=== PATIENT | male | born 1945 | race Caucasian/White ===

== ENCOUNTER 2017-03-10 09:30 | Outpatient (RCR) | payer MEDICARE, OTHER, SELFPAY | END 2017-03-10 23:59 | LOC: PT 09:30 | PROVIDERS: Visit Provider Internal Medicine | DX: Z95.5 Presence of coronary angioplasty implant and graft (principal) | CPT/HCPCS: 93798 ==

== ENCOUNTER → 2017-05-02 11:48 | Outpatient (CLI) | payer MEDICARE, OTHER, SELFPAY ==
[2017-05-02 14:41] LABS: Prostate Specific Ag Screen 0.8 ng/mL (0.0-4.0)
== END ==
PROVIDERS: Visit Provider Urology
DX: Z12.5 Encounter for screening for malignant neoplasm of prostate (principal); N40.2 Nodular prostate without lower urinary tract symptoms
CPT/HCPCS: 36415; G0103

== ENCOUNTER → 2017-12-05 13:34 | Outpatient (CLI) | payer MEDICARE, OTHER, SELFPAY ==
[2017-12-05 14:58] LABS: Prostate Specific Ag Screen 0.7 ng/mL (0.0-4.0)
== END ==
PROVIDERS: PCP Nurse Practitioner Family; Visit Provider Urology
DX: N40.2 Nodular prostate without lower urinary tract symptoms (principal); Z12.5 Encounter for screening for malignant neoplasm of prostate
CPT/HCPCS: 36415; G0103

== ENCOUNTER → 2018-01-22 14:52 | Outpatient (CLI) | payer MEDICARE, OTHER, SELFPAY ==
--- NOTE | 2018-01-22 15:01 | XR_ITS ---
XR chest 2V HISTORY: HISTORY of CAD. Stents placed.. ITS.REASON: HTN ORDERING PHYSICIAN: Mena Perez PATIENT AGE: 72 years Technique: PA and lateral chest COMPARISON: 12/29/2016 FINDINGS:. Lungs clear with nothing definitely acute or no significant change. Stable small calcified granuloma towards the lateral right lung base. Small calcified hilar nodes reflecting old granulomatous disease The cardiomediastinal silhouette and pulmonary vascularity are within normal limits. The lungs are clear without infiltrates, suspicious nodules, or pleural effusions. No acute bony abnormalities. Marginal osteophytes lower T-spine account for the minimal density lower chest on lateral view. Stable since prior study. IMPRESSION: Stable chest nothing definitely acute.
== END ==
PROVIDERS: PCP Nurse Practitioner Family; Visit Provider Nurse Practitioner Family
DX: Z01.818 Encounter for other preprocedural examination (principal)
CPT/HCPCS: 71046

== ENCOUNTER → 2018-05-10 08:50 | Outpatient (CLI) | payer MEDICARE, OTHER, SELFPAY ==
[2018-05-10 13:58] LABS: Basophils % 0.6 % (0.1-2.0); Eosinophils # 0.4 K/mm3 (0.0-0.4); Eosinophils % 7.8 % (0.1-12.0); Hematocrit 43.1 % (42.0-52.0); Hemoglobin 15.1 g/dL (14.1-18.0); Lymphocytes # 2.5 K/mm3 (0.7-4.5); Lymphocytes % 48.4 % (10-50); Mean Corpuscular HGB Conc 34.9 g/dL (31.8-35.4); Mean Corpuscular Hemoglobin 30.5 pg (27.0-31.2); Mean Corpuscular Volume 87.2 fl (80-94); Monocytes # 0.4 K/mm3 (0.1-1.0); Monocytes % 8.6 % (1.7-9.3); Neutrophils # 1.8 K/mm3 (1.8-7.8); Neutrophils % 34.5 % (37.0-80.0); Platelet Count 99 K/mm3 (142-424); Red Blood Count 4.94 M/mm3 (4.60-6.20); Red Cell Distribution Width 13.9 % (11.5-17.5); White Blood Count 5.1 K/mm3 (4.8-10.8)
[2018-05-10 14:03] LABS: Alanine Aminotransferase 45 U/L (12-78); Albumin Level 3.7 gm/dL (3.4-5.0); Alkaline Phosphatase 73 U/L (46-116); Anion Gap 13.7 mEq/L (5-15); Aspartate Amino Transferase 29 U/L (15-37); Bilirubin,Total 0.8 mg/dL (0.2-1.0); Blood Urea Nitrogen 10 mg/dL (7-18); Calcium 9.1 mg/dL (8.5-10.1); Carbon Dioxide 29 mmol/L (21.0-32.0); Chloride 102 mmol/L (98-107); Creatinine,Serum 0.83 mg/dL (0.70-1.30); Estimated Glomerular Filt Rate 91 ml/min (>60); GFR (African American) 111 ML/MIN (>60); Globulin 3.6 gm/dl (1.3-3.2); Glucose 184 mg/dL (74-106); Potassium 3.7 mmoL/L (3.5-5.1); Sodium 141 mmol/L (136-145); Total Protein,Serum 7.3 gm/dL (6.4-8.2)
== END ==
PROVIDERS: PCP Nurse Practitioner Family; Visit Provider Orthopaedic Surgery
DX: Z01.818 Encounter for other preprocedural examination (principal)
CPT/HCPCS: 36415; 80053; 85025

== ENCOUNTER → 2018-08-24 13:30 | Outpatient (CLI) | payer MEDICARE, OTHER, SELFPAY ==
--- NOTE | 2018-08-24 13:33 | CA_ITS ---
PROCEDURE: 2-D M-mode and color Doppler study INDICATIONS FOR THE TEST: Chest pain COPD Heart Murmur Tobacco SmokingEX Palpitations Fatigue Syncope Edema+ Hypertension+Diabetes Mellitus Rheumatic Fever SOB+CHAHAL+Obesity Hyperlipidemia+ Family History HD Additional History CAD, 3 cardiac stents, GERD PATIENT INFORMATION HEIGHT: 68 WEIGHT: 205 GENDER: Male B/P: 136/79 2-D/M-MODE INTERPRETATION: 2-D MEASUREMENTS OBSERVED VALUES IN CMS Right Ventricular Dimension (RVDd) 2.6 Interventricular Septum (Thickness)(IVsd) 1.3 Left Ventricular Internal Dimensions(LVIDd) 4.0 Left Ventricular Posterior Wall (Thickness)(LVPWd) 1.0 Aortic Root 2.6 Aortic Cusp Separation 2.3 Left Atrial Dimensions (LAD) 3.6 2D 1. Left atrium is mildly enlarged, left ventricle is normal size, mild concentric left ventricular hypertrophy, visually estimated ejection fraction 55% with no regional wall motion abnormality. 2. The right atrium and right ventricle are mildly enlarged with normal contractility. 3. The aortic valve is minimally thickened and fibrosed. 4. The mitral and tricuspid valve leaflets are grossly normal. 5. The pulmonic valve is poorly visualized. 6. No significant pericardial effusion noted. DOPPLER INTERROGATION: Doppler interrogation of the aortic, mitral and tricuspid valvular presence of mild mitral and tricuspid regurgitation, tricuspid regurgitation jet velocity is inadequate for calculation of the right ventricular systolic pressure, grade 1 diastolic dysfunction seen with tissue Doppler evidence of raised left atrial pressure. CONCLUSION: 1. Mildly enlarged left atrium, normal left ventricular size, mild concentric left ventricular hypertrophy, visually estimated ejection fraction 55% with no regional wall motion abnormality, grade 1 diastolic dysfunction seen with tissue Doppler evidence of raised left atrial pressure. 2. Mild mitral and tricuspid regurgitation 3. No significant pericardial effusion noted.
== END ==
PROVIDERS: PCP Nurse Practitioner Family; Visit Provider Urology
DX: R06.00 Dyspnea, unspecified; I25.10 Atherosclerotic heart disease of native coronary artery without angina pectoris; E78.2 Mixed hyperlipidemia; R06.09 Other forms of dyspnea; Z95.5 Presence of coronary angioplasty implant and graft; I11.9 Hypertensive heart disease without heart failure
CPT/HCPCS: 93306

== ENCOUNTER → 2018-12-04 14:06 | Outpatient (CLI) | payer MEDICARE, OTHER, SELFPAY ==
[2018-12-04 17:36] LABS: Prostate Specific Ag, Diagnost 0.97 ng/mL (0.0-4.0)
== END ==
PROVIDERS: Visit Provider Urology
DX: N40.0 Benign prostatic hyperplasia without lower urinary tract symptoms (principal)
CPT/HCPCS: 36415; 84153

== ENCOUNTER 2020-05-25 12:07 | Day surgery (SDC) | payer MEDICARE, OTHER, SELFPAY ==
[2020-05-19 10:15] VITALS: BMI 29.6
[2020-05-25 12:52] VITALS: BP 159/97; PULSE 83; RESP 18; TEMP 37.1; O2SAT 96
[2020-05-25 13:07] LABS: Coronavirus 19 IgG Antibody Positive (Negative); Coronavirus 19 IgM Antibody Negative (Negative)
[2020-05-25 13:15] VITALS: O2SAT 97
[2020-05-25 13:19] LABS: POC Glucose,Bedside 124 (70-110)
[2020-05-25 13:36] VITALS: BP 163/85; PULSE 95; RESP 16; TEMP 36.4; O2SAT 95
--- NOTE | 2020-05-25 13:36 | P.PCN_ITS ---
[facility] Procedure Note Procedure Note:: Upper Endoscopy Procedure Report: Esophagogastroduodenoscopy with cold biopsies and TTS balloon dilation Endoscopost: Ned Singh II, MD Referring Physician: SATNAM Gallagher Date of Procedure: May 25, 2020 Equipment: Olympus GIF 190 standard upper endoscope Sedation: MAC sedation Indications: Mr. Pimentel is a 74-year-old gentleman who is here for diagnostic evaluation of his dysphagia. This primarily occurs with solid foods such as breads and meats. This has been going on for more than a year but has been worsening. He reports no heartburn or reflux. He does have some belching. This was better when he was on the Nexium and Zantac. He is not improving as much with omeprazole by mouth twice daily. This is his first upper endoscopy. He reports no bloating but does have some globus sensation. Procedure: Prior to the procedure, a history and physical exam was performed, and patient's medications and allergies were reviewed. The risks, benefits and alternatives of the sedation and procedure were discussed with the patient. All questions were answered and informed consent was obtained. The patient was brought to the procedure room. Patient identification and proposed procedure were verified by the physician and the nurse. The patient was placed in a left lateral decubitus position and the scope was passed under direct vision. Throughout the procedure, the patient's blood pressure, pulse, and oxygen saturations were monitored continuously. The upper GI endoscopy was accomplished without difficulty. The patient tolerated the procedure well. Findings: The scope was passed directly into the upper esophagus and advanced to the third portion of the duodenum. There was some duodenitis of the post bulbar duodenum. Within the duodenal bulb there were several shallow very superficial duodenal ulcers. The scope was withdrawn through a normal pylorus into the stomach. There was evidence of linear reactive gastropathy of the antrum and body of the stomach. The remainder of the fundus of the stomach were grossly normal. Upon retroflexion there was a very small 1 to 2 cm hiatal hernia. 2 biopsies were taken in the antrum and along the lesser curvature for histology to rule out gastritis and/or H pylori. The scope was then withdrawn into the esophagus. There was a distal Schatzki's ring. There was no evidence of reflux esophagitis or Cullen's. There was no evidence of eosinophilic esophagitis. There were strong tertiary contractions and evidence of moderate esophageal dysmotility. The entire esophagus was dilated to 60 Portuguese/20 mm with a TTS hydrostatic balloon. There was shattering of the Schatzki's ring. There was some resistance at the cricopharyngeus. The remainder of the esophageal mucosa was normal. Impression: 1. Cricopharyngeal spasm status post dilation to 20 mm 2. Schatzki's ring dilated to 20 mm 3. Nonerosive GERD with mild esophageal dysmotility and very small 1 to 2 cm hiatal hernia 4. Superficial duodenal ulcers (of duodenal bulb) with peptic duodenitis 5. Linear reactive gastropathy Plan: I will follow-up the biopsies. I would consider pantoprazole 40 mg p.o. daily. We will discuss additional dietary measures and treatment options. I will inquire about NSAID use and follow-up gastric biopsies to rule out H. pylori. The patient should have clinical improvement with dilation.
[2020-05-25 13:46] VITALS: BP 147/81; PULSE 85; RESP 16; O2SAT 95
[2020-05-25 13:56] VITALS: BP 143/89; PULSE 80; RESP 16; O2SAT 95
[2020-05-25 14:06] VITALS: BP 147/87; PULSE 76; RESP 16; TEMP 36.4; O2SAT 95
--- NOTE | 2020-05-25 15:11 | HMH.ANESCL ---
[facility] Anesthesia Checklist - Patient Identification Patient Identification: Arm Band - Structural Data Admitted From: Home Planned Operative Procedure/s: egd Consent for Planned Operative Procedure(s) Verified: Yes Verified Documents: Surgical Consent, History and Physical - NPO Status Verified Time NPO: 00:00 - Additional verifications Anesthesia Reactions: No Hx Blood Transfusions: No Blood Transfusion Reaction: No - Airway Assessment C-Spine Mobility Assessed: Yes (mp2) TMJ Mobility Assessed: Yes Dentition: Poor Dentition - Neurological Assessment Level of Consciousness: Awake, Alert - Anesthesia Plan Anesthesia Risk discussed: Yes Anesthesia Plan: Verified ASA Class: III Anesthesia Type: MAC [facility] History I have reviewed the patient's past medical history: Yes Medical History: Reports:: Coronary Artery Disease, Diabetes Mellitus Type 2, Gastroesophageal Reflux Disease(GERD), Hyperlipidemia, Hypertension Denies:: Cancer, Diabetes Mellitus Type 1, Internal Pacemaker, MRSA, Seizures *Have you ever received a pneumonia vaccine?: Yes *Have you received a flu vaccine this season?: Yes Other Medical History: Reports: Anemia. Denies: Blood Transfusion Reaction Anesthesia experience/problems:: nac Laterality Cases: Bilateral: Arthroscopy Hip, Tonsillectomy, Total Hip Replacement Other Surgeries: Yes: Colonoscopy, Coronary Stent, Other. No: Pacemaker Amputation: No Fractures: No - *Social History Last grade of school completed: High school graduate Smoking Status: Never smoker Alcohol Intake: never Alcohol Intake Frequency:: other Substance Use Type: denies use *Occupational Status:: retired Housing: house Household Members: spouse *Travel in the last 8 weeks: None Family Hx:: Coronary Artery Disease
== END 2020-05-25 14:08 | disposition home or self-care (01) ==
PROVIDERS: PCP Nurse Practitioner Family; Visit Provider Internal Medicine Gastroenterology
PROC: 0DJ08ZZ Inspection of Upper Intestinal Tract, Via Natural or Artificial Opening Endoscopic (ICD-10-PCS; CPT 43235; principal; 2020-05-25 13:30)
DX: R13.10 Dysphagia, unspecified (principal); J39.2 Other diseases of pharynx; K22.2 Esophageal obstruction; K44.9 Diaphragmatic hernia without obstruction or gangrene; K21.9 Gastro-esophageal reflux disease without esophagitis; K22.4 Dyskinesia of esophagus; K26.9 Duodenal ulcer, unspecified as acute or chronic, without hemorrhage or perforation; K29.80 Duodenitis without bleeding; K31.9 Disease of stomach and duodenum, unspecified; E78.5 Hyperlipidemia, unspecified; I10 Essential (primary) hypertension; E11.9 Type 2 diabetes mellitus without complications; I25.10 Atherosclerotic heart disease of native coronary artery without angina pectoris
CPT/HCPCS: 43239; 43249; 36415; 82962; 86328; 88305; C1726

== ENCOUNTER → 2021-08-25 07:06 | Outpatient (CLI) | payer MEDICARE, OTHER, SELFPAY ==
--- NOTE | 2021-08-25 07:07 | CA_ITS ---
APPROVED REPORT EXAM: Comprehensive 2D, Doppler, and color-flow Echocardiogram Launchman: ANDREW Pruett, RVS Ht: 5 ft 8 in Wt: 208lbs BSA: 2.08 BP: 134/75 mmHg Indications: CAD,DD, GERD, CP, HTN, HLD, EDEMA Echo Enhancing Agent Comments: TDS-Patient in constant motion 2D Dimensions Aortic Root 3.06 cm M: 3.1 - 3.7 LA Volume 40.70 mL Left Atrium 3.47 cm M: 3.0 - 4.0 LA Volume Index 19.747128 mL/m2 (M/F) 16-34 LVOT 1.98 cm (M/F) 1.5-2.5 M-Mode Dimensions RVDd 2.58 cm (0.9-2.6) LA Diam 4.08 cm (1.9-4.0) LVDd 4.15 cm (3.5-5.7) Ao Diam 3.43 cm (2.0-3.7) LVDs 2.50 cm (3.5-5.7) IVSd 1.25 cm (0.6-1.1) PWd 1.04 cm (0.6-1.1) EF (Teich) 70.80% EPSs 0.61 cm FS 39.80% EDV (Teich) 76.40 mL TAPSE 1.98 (<1.7) ESV (Teich) 22.30 mL LV Diastology E Decel Time 187.00 (160-240 msec) E/A Ratio 0.87 MED E' 6.80 (< 7 cm/sec) MED A' 11.00 cm/s E'/MED E' Ratio 13.38 (>14) LAT E' 5.40 (<10 cm/sec) LAT A' 8.80 cm/s E/LAT E' Ratio 16.85 (>14) Aortic Valve LVOT Max 90.00 (70-110 cm/s) LVOT VTI 18.86 cm AoV Peak David. 146.00 (50-130 cm/s) AO Peak GR. 8.50 mmHg AO Mean GR. 4.20 (<5 mmHg) AO VTI 29.13 (18-25 cm) CATHERINE (VTI) 1.99 (2.5-4.5 cm2) Mitral Valve MV A Velocity 105.00 (40-130 cm/s) E/A Ratio 0.87 MV Decel. Time 187.00 (160-240 ms) MV PHT 53.00 ms Pulmonary Valve PV Peak Velocity 95.00 (50-150 cm/s) MD End VMAX 210.00 cm/s Tricuspid Valve TR P. Velocity 254.00 cm/s RAP Estimate 10.00 mmHg RVSP 35.80 mmHg Left Ventricle Left atrium is mildly enlarged, left ventricle is normal size mild concentric left ventricular hypertrophy, estimated ejection fraction 55% with no regional wall motion abnormality, grade 1 diastolic dysfunction seen without tissue Doppler evidence of raise left atrial pressure. Right Ventricle Right atrium and right ventricle are normal size and contractility. Aortic Valve Aortic valve is minimally thickened and fibrosed there is no aortic stenosis or aortic insufficiency. Mitral Valve Mitral valve is grossly normal, there is trace mitral regurgitation. Tricuspid Valve Tricuspid grossly normal, there is trace tricuspid regurgitation, tricuspid regurgitation jet velocity is inadequate for calculation of the right ventricular systolic pressure. Pulmonic Valve Pulmonic valve is poorly visualized. Great Vessels Aortic root is normal size. Inferior vena cava is poorly visualized. Pericardium No significant pericardial effusion noted. Conclusion 1. Mildly enlarged left atrium, normal left ventricular size mild concentric left ventricular hypertrophy, estimated ejection fraction 55% with no regional wall motion abnormality, grade 1 diastolic dysfunction seen without tissue Doppler evidence of his left atrial pressure. 2. Trace mitral and tricuspid rotation. 3. No significant pericardial effusion. 4. Inferior vena cava is poorly visualized. Electronically signed by : Zana Nix MD 08/25/2021 19:15:23
--- NOTE | 2021-08-25 07:07 | CA_ITS ---
APPROVED REPORT Exam: Pharmacologic Technologist: Alma Cade, Ht: 5 ft 8 in Wt: 204 lbs BSA: 2.06 m2 HR: 70 bpm BP: 141/79 mmHg Medical History Medications: Lisinopril,,,,, Aspirin,,,,, Metformin,,,,, Pantoprazole,,,,, Atorvastatin,,,,, Beckie,,,,, HCTZ,,,,, Coreg,,,,, Zinc,,,,, Vitamin C, D3,,,,, Stress Test Details Test: LEXISCAN HR Resting HR: 74 bpm Max Heart Rate (APMHR): 146.331585 bpm Max HR Achieved: 104 bpm Target HR (85% APMHR): 124.207261 bpm % of APMHR: 71.23 Recovery HR: 92 bpm BP Resting BP: 141/79 mmHg Max BP: 141/79 mmHg Recovery BP: 138.0/74.0 mmHg ECG Resting ECG: NSR, normal Clinical Exercise duration: 04:00 min Highest Stage Achieved: Exercise capacity: 1.0 METs Stress ECG Conclusion Symptoms: SOA, mild stomach & head discomfort. No CP. Arrhythmias/Ectopy: None ST-T Changes: No significant changes. Conclusion: Unremarkable Lexiscan stress. Myoview images reported separately. Electronically signed by : Zana Nix MD 08/25/2021 18:54:14
--- NOTE | 2021-08-25 07:07 | NM_ITS ---
APPROVED REPORT Exam: Nuclear Stress Test Indication: Angina, HTN, DM, High cholesterol, Family history, CAD Patient Location: Outpatient Stress Tech: Alma Espinosa SC Tech:Patricia Hooker, ARRT, RT (R)(N) Ht: 5 ft 8 in Wt: 203 lbs HR: 74 bpm BP: 141/79 mmHg BSA: 2.06 m2 TID: 1.08 BMI: 30.8 History: Angina, HTN, DM, High cholesterol, Family history, CAD Procedure: Patient received a 0.4 mg of intravenous Lexiscan, resting heart rate 74 bpm, resting blood pressure 141/79 mmHg, with Lexiscan maximum heart rate achived was 104 bpm which is Less than 85 % of the maximum predicted heart rate and blood pressure was 141/79 mmHg. With Lexiscan, patient denied any complaint of chest pain. Electrocardiogram Resting electrocardiogram shows sinus rhythm, with Lexiscan less than 1.[address] segment depression noted from the baseline EKG. The EKG portion of the Lexiscan is nondiagnostic. Cardiac Stress and Resting SPECT Images: Cardiac Stress and Resting SPECT images were obtained using technetium 99m Myoview 31.8 mCi stress and 10.92 mCi at rest. Gated SPECT for analysis of segmental wall motion and calculation of the ejection fraction also done. Prone images were also obtained. Cardiac stress and rest SPECT images show uniform myocardial activity without segmental perfusion abnormality, computer derived ejection fraction 59% with no regional wall motion abnormality, right ventricle is normal size and contractility. Conclusion: 1. The EKG portion of the Lexiscan is nondiagnostic. 2. No scintigraphic evidence of reversible ischemia seen, compared to ejection fraction 59% with no regional wall motion abnormality, right ventricle is normal size and contractility. 3. Normal Lexiscan Myoview study. Electronically signed by : Zana Nix MD 08/25/2021 18:57:13
--- NOTE | 2021-08-25 08:44 | HMH.ITSHM ---
Current Home Medications as stated by this patient Aneesh Green or senior customer service representative. []ZINC PANTOPRAZOLE METFORMIN LISINOPRIL VITAMINS DUTASTERIDE CARVEDILOL ATORVASTATIN ASA
== END ==
PROVIDERS: PCP Nurse Practitioner Family; Visit Provider Nurse Practitioner Family
DX: E78.2 Mixed hyperlipidemia (principal); I10 Essential (primary) hypertension; I25.118 Atherosclerotic heart disease of native coronary artery with other forms of angina pectoris; Z95.5 Presence of coronary angioplasty implant and graft; R06.00 Dyspnea, unspecified
CPT/HCPCS: 78452; 93017; 93306; A9502; J2785

== ENCOUNTER → 2022-04-19 14:22 | Outpatient (CLI) | payer MEDICARE, OTHER, SELFPAY ==
--- NOTE | 2022-04-19 14:26 | MR_ITS ---
FINAL REPORT TECHNIQUE: Multiplanar and multisequence imaging of the lumbar spine was obtained without contrast. CLINICAL HISTORY: LUMBAR PAIN with right leg pain COMPARISON: 01/06/2021 FINDINGS: There is normal alignment of the lumbar vertebral bodies. Vertebral body height is preserved. The spinal cord ends at the level of L1. There is normal signal intensity within the substance of the distal spinal cord. There is a hemangioma in the L1 vertebral body, unchanged from prior. Bone marrow signal intensity is is normal. Multiple bilateral renal cysts are identified. No acute paraspinal abnormality is identified. L1-2: There is an annular disc bulge with degenerative endplate changes and facet osteoarthropathy. There is mild central stenosis. There is severe right and moderate left neural foraminal narrowing. L2-3: There is an annular disc bulge with degenerative endplate changes and facet osteoarthropathy. There is moderate to severe central stenosis with severe bilateral neural foraminal narrowing. L3-4: There is an annular disc bulge with degenerative endplate changes and facet osteoarthropathy. There is a superimposed right paracentral disc protrusion. There is severe central stenosis. There is severe, right greater than left neural foraminal narrowing. L4-5: There is an annular disc bulge with degenerative endplate changes and facet osteoarthropathy. There is moderate central stenosis and severe bilateral neural foraminal narrowing. L5-S1: There is an annular disc bulge with degenerative endplate changes and facet osteoarthropathy. There is mild central stenosis. There is severe right and moderate left neural foraminal narrowing. IMPRESSION: Advanced degenerative disc disease, stable to slightly worse. Reviewed, Interpreted and Dictated by Fabi Solis MD Transcribed by Vicky Liu Authenticated and [facility]
== END ==
PROVIDERS: PCP Nurse Practitioner Family; Visit Provider Orthopaedic Surgery
DX: M54.50 Low back pain, unspecified (principal)
CPT/HCPCS: 72148; 76376

== ENCOUNTER 2022-05-04 13:25 | Inpatient (IN) | payer MEDICARE, OTHER, SELFPAY ==
[2022-05-04] VITALS (12 sets, daily range): BP systolic 114–159; BP diastolic 67–97; PULSE 68–92; RESP 16–19; TEMP 36.6–36.8; O2SAT 92–98; BMI 30.4; BMI 31.2
--- NOTE | 2022-05-04 13:25 | ECG_ITS ---
APPROVED REPORT Exam: Resting ECG HR:81 bpm ECG Measurements Heart Rate 81 AXES ND 177 P 59 QRSd 88 QRS -11 QT 381 T 17 QTc 419 Conclusion SINUS RHYTHM NORMAL ECG UNCONFIRMED REPORT Electronically signed by : David Gomez MD 05/05/2022 17:07:29
--- NOTE | 2022-05-04 13:33 | HMH.EDGENADL ---
Discharge Plan Disposition Patient Disposition: Admitted as Observation Condition: Good Prescriptions Prescriptions: No Action metformin 500 mg tablet 500 mg PO DAILY pantoprazole 40 mg tablet,delayed release (DR/EC) 40 mg PO DAILY cholecalciferol (vitamin D3) 50 mcg (2,000 unit) capsule 50 mcg PO DAILY zinc 50 mg tablet 50 mg PO DAILY ascorbic acid (vitamin C) 500 mg capsule PO aspirin [Adult Low Dose Aspirin] 81 mg tablet,delayed release (DR/EC) 81 mg PO QDAY dutasteride-tamsulosin 0.5-0.4 mg capsule, ER multiphase 24 hr 1 cap PO QDAY ugmptoirwga-oeoqizzxh-vxe C-Mn 500-400 mg capsule 1 cap PO DAILY carvedilol phosphate 40 mg capsule, ER multiphase 24 hr See Rx Instructions .ROUTE .COMPLEX Qty: 90 3RF Dose Instruction: TAKE 1 CAPSULE DAILY FOR BLOOD PRESSURE Rx Instructions: TAKE 1 CAPSULE DAILY FOR BLOOD PRESSURE lisinopril-hydrochlorothiazide 10-12.5 mg tablet See Rx Instructions .ROUTE .COMPLEX Qty: 180 3RF Dose Instruction: TAKE 2 TABLETS DAILY Rx Instructions: TAKE 2 TABLETS DAILY atorvastatin 40 mg tablet See Rx Instructions .ROUTE .COMPLEX Qty: 90 3RF Dose Instruction: TAKE 1 TABLET DAILY FOR CHOLESTEROL Rx Instructions: TAKE 1 TABLET DAILY FOR CHOLESTEROL Referrals Follow up/Referrals: Yolanda Gonsalez [Primary Care Provider] - See instructions Clinical Impressions Clinical Impression: Chest pain Discharge ED Provider: Nick Samuel General Adult HPI General Chief complaint: Chest Pain Stated complaint: CP Time Seen by Provider: 05/04/22 14:16 History of Present Illness HPI narrative: Patient complains of chest discomfort. States that he awakened this morning about 5 AM and noticed some discomfort in his left anterior upper chest in the infraclavicular area. That his status is a mild nagging pain all day. Then when he was eating lunch she also got some substernal chest pain and pain in his jaws. States he is always short of breath, no change in his dyspnea. No nausea or diaphoresis. States that his chest discomfort is similar to what he has had from his heart in the past. He has a history of coronary disease with 3 stents done years ago by Dr. Collins. He has not had a heart cath since his last stent. He took low-dose aspirin this morning. He does not have nitroglycerin at home. He has not been ill otherwise recently. Related Data Home Medications Medication Instructions Recorded Confirmed aspirin 81 mg tablet,delayed 81 mg PO QDAY HEART. 03/27/17 08/16/21 release (Adult Low Dose Aspirin) dutasteride 0.5 mg-tamsulosin ER 1 cap PO QDAY PROSTATE 03/27/17 08/16/21 0.4 mg capsule ext.release 24hr mphas hvwnrxmskzc-pdaasjbeq-nmd C-Mn 500 1 cap PO DAILY Supplement 08/14/18 08/16/21 mg-400 mg capsule metformin 500 mg tablet 500 mg PO DAILY Diabetes 02/19/20 08/16/21 ascorbic acid (vitamin C) 500 mg mg PO 08/19/20 08/16/21 capsule cholecalciferol (vitamin D3) 50 50 mcg PO DAILY 08/19/20 08/16/21 mcg (2,000 unit) capsule pantoprazole 40 mg tablet,delayed 40 mg PO DAILY 08/19/20 08/16/21 release zinc 50 mg tablet 50 mg PO DAILY 08/19/20 08/16/21 Previous Rx's Medication Instructions Recorded carvedilol phosphate 40 mg See Rx Instructions .Route 10/07/21 capsule,ext.[id number] multiphase .COMPLEX #90 caps lisinopril 10 See Rx Instructions .Route 10/18/21 mg-hydrochlorothiazide 12.5 mg .COMPLEX #180 tabs tablet atorvastatin 40 mg tablet See Rx Instructions .Route 12/07/21 .COMPLEX #90 tabs Allergies Allergy/AdvReac Type Severity Reaction Status Date / Time No Known Allergies Allergy Verified 08/16/21 08:44 [facility] Disclaimer: The information contained in this section may have been updated after the patient was seen, as this information can be updated by other users. Medical History (Updated 05/04/22 @ 15:09 by Nick Jenkins
--- NOTE | 2022-05-04 13:40 | XR_ITS ---
FINAL REPORT CLINICAL HISTORY: chest pain COMPARISON: 12/29/2016 FINDINGS: PA and lateral views of the chest were obtained. The cardiac and mediastinal silhouettes are within normal limits. On the lateral view, there is a rounded opacity along the anterior margin of two lower thoracic vertebral bodies which is an unchanged from 2017. The lungs are otherwise clear. There is no pleural effusion or pneumothorax. No acute osseous abnormality is identified. IMPRESSION: No radiographic evidence of acute cardiac or pulmonary process, stable since 2017. Reviewed, Interpreted and Dictated by Fabi Solis MD Transcribed by Mary Saba Authenticated and [facility]
--- NOTE | 2022-05-04 13:50 | PC.NURSE ---
pt gone to xray
--- NOTE | 2022-05-04 14:00 | PC.NURSE ---
pt arrived back from xray
--- NOTE | 2022-05-04 14:00 | PC.NURSE ---
From Radiology via WC
[2022-05-04 14:15] LABS: Chloride 103 mmol/L (98-107); Potassium 3.3 mmoL/L (3.5-5.1); Sodium 139 mmol/L (136-145)
[2022-05-04 14:18] LABS: Anion Gap 10.3 mEq/L (5-15); Blood Urea Nitrogen 11 mg/dl (9-20); Calcium 8.8 mg/dl (8.4-10.2); Carbon Dioxide 29 mmol/L (22.0-30.0); Creatinine Clearance Estimated 82 mL/min (50-200); Estimated Glomerular Filt Rate 94 ml/min (>60); GFR (African American) 114 ML/MIN (>60); Glucose 149 mg/dl (74-100)
[2022-05-04 14:20] LABS: Basophils # 0.1 K/mm3 (0-0.2); Basophils % 1.1 % (0.1-2.0); Eosinophils # 0.4 K/mm3 (0.0-0.4); Eosinophils % 4.7 % (0.1-12.0); Hematocrit 42.3 % (42.0-52.0); Hemoglobin 14.3 g/dL (14.1-18.0); Lymphocytes # 2.9 K/mm3 (0.7-4.5); Lymphocytes % 31.4 % (10-50); Mean Corpuscular HGB Conc 33.7 g/dL (31.8-35.4); Mean Corpuscular Hemoglobin 29.5 pg (27.0-31.2); Mean Corpuscular Volume 87.6 fl (80-94); Mean Platelet Volume 9.4 fl (7.4-10.4); Monocytes # 0.6 K/mm3 (0.1-1.0); Monocytes % 6.3 % (1.7-9.3); Neutrophils # 5.2 K/mm3 (1.8-7.8); Neutrophils % 56.4 % (37.0-80.0); Platelet Count 220 K/mm3 (142-424); Red Blood Count 4.83 M/mm3 (4.60-6.20); White Blood Count 9.2 K/mm3 (4.8-10.8)
--- NOTE | 2022-05-04 14:22 | PC.NURSE ---
rivas garcía speaking to everette pinon about pt
--- NOTE | 2022-05-04 14:32 | PC.NURSE ---
Rounded on patient; pt resting on ED stretcher with family at BS. no other needs at this time, call light within reach
[2022-05-04 14:41] LABS: Troponin I < 0.01 ng/ml (0.00-0.034)
--- NOTE | 2022-05-04 15:00 | PC.NURSE ---
CARITO Mohr with Cardiology at BS
--- NOTE | 2022-05-04 15:13 | PC.NURSE ---
Spoke with Mindy in care management regarding patient admission
--- NOTE | 2022-05-04 15:17 | PC.NURSE ---
rounded on pt no complaints at this time family at bedside
--- NOTE | 2022-05-04 15:31 | PC.NURSE ---
bed assignment requested, room 202, all staff notified
[2022-05-04 15:36] LABS: Coronavirus 19, PCR Not Detected (NotDetected); Influenza A, PCR Not Detected (NotDetected); Influenza B, PCR Not Detected (NotDetected)
--- NOTE | 2022-05-04 15:39 | PC.NURSE ---
rounded on pt, unhooked and pt ambulated to the bathroom Returned and hooked back up to monitor
--- NOTE | 2022-05-04 15:43 | EXP.CARD.CON ---
History of Present Illness History of Present Illness Consult date: 05/04/22 Requesting physician: Nick Samuel Consult reason: chest pain Chief complaint: chest pain History of present illness: This is a 76-year-old white gentleman who presented to the emergency department complaints of chest pain. He stated he awakened this morning around 5 AM with discomfort and the left side of his chest near his left shoulder. He states that it was a nagging, tight, aching pain. He states that this kind of persisted on and off throughout the morning. He states he was eating lunch and then he had sudden onset of pain in the substernal aspect of his chest radiating to his jaws. He denies any shortness of breath or diaphoresis. He states that he did feel nauseated. He states that the pain also radiated into his neck as well. He states that his symptoms were very similar to the symptoms when he needed stenting in the past. He did take aspirin this morning but no nitroglycerin. He states that after his episode around lunch his symptoms were alarming and he decided to come into the emergency department. His first troponin is negative. [facility] Disclaimer: The information contained in this section may have been updated after the patient was seen, as this information can be updated by other users. Medical History (Updated 05/04/22 @ 15:09 by Nick Samuel MD) HLD (hyperlipidemia) Social History Smoking Status: Never smoker second hand exposure: No alcohol intake: never counseling provided: none substance use type: denies use current occupational status: retired Travel in the last 8 weeks: Inside the [place] household members: spouse housing: house current occupational exposures/hazards: No caffeine: No Review of Systems Review of Systems Review of systems:: pertinent systems reviewed and negative unless documented below Constitutional Constitutional: Reports system reviewed and no additional complaints, except as documented, Denies headache(s) and Denies weakness Eyes Eyes: Reports system reviewed and no additional complaints, except as documented ENT Ears, Nose, Mouth, and Throat: Reports system reviewed and no additional complaints, except as documented and Denies headache(s) *Cardiovascular Cardiovascular: Reports system reviewed and no additional complaints, except as documented, Reports chest pain, Reports chest pain at rest, Reports chest pain with activity and Reports radiating jaw, neck or arm pain *Respiratory Respiratory: Reports system reviewed and no additional complaints, except as documented *Gastrointestinal Gastrointestinal: Reports system reviewed and no additional complaints, except as documented and Reports nausea *Genitourinary Genitourinary: Reports system reviewed and no additional complaints, except as documented *Musculoskeletal Musculoskeletal: Reports system reviewed and no additional complaints, except as documented and Denies numbness Integumentary/Breasts Skin/Breast: Reports system reviewed and no additional complaints, except as documented *Neurologic Neurologic: Denies headache(s), Denies numbness and Denies weakness Psychiatric Psychiatric: Reports system reviewed and no additional complaints, except as documented Endocrine Endocrine: Reports system reviewed and no additional complaints, except as documented Hematologic/Lymphatic Hematologic/Lymphatic: Reports system reviewed and no additional complaints, except as documented Allergic/Immunologic Allergic/Immunologic: Reports system reviewed and no additional complaints, except as documented Exam Data for Last 24 hours Vital signs and Labs for Last 24 Hours: Temp Pulse Resp BP Pulse Ox 98.2 F 68 19 141/81 H 96 05/04/22 13:26 05/04/22 15:01 05/04/22 13:30 05/04/22 15:01 05/04/22 15:01 Laboratory Results - last 24 hr 05/04/22 13:53: WBC 9.2, RBC 4.83, Hgb 14.3, Hct 42.3, MCV 87.6, MCH 29.5, MCHC 33.7, RDW 14.0,
--- NOTE | 2022-05-04 15:47 | PC.NURSE ---
called lab to check on update of rapid covid swab states it will be 25 minutes before resulting
--- NOTE | 2022-05-04 15:49 | CA_ITS ---
APPROVED REPORT EXAM: Comprehensive 2D, Doppler, and color-flow Echocardiogram Cell Feed Department Supervisor: ANDREW Pruett, RVS Ht: 5 ft 8 in Wt: 141lbs BSA: 1.76 BP: 141/81 mmHg Indications: CP,CAD, DD, CP, DM, HTN, HLD 2D Dimensions IVSd 0.92 cm LVEF (Visual) 74.00 % PWd 1.15 cm LA Volume 36.20 mL LVDd 5.05 cm LA Volume Index 20.10 mL/m2 (M/F) 16-34 LVDs 2.87 cm Aortic Root 2.78 cm Left Atrium 3.74 cm LVOT 1.99 cm (M/F) 1.5-2.5 M-Mode Dimensions RVDd 3.10 cm (0.9-2.6) LA Diam 4.04 cm (1.9-4.0) LVDd 4.99 cm (3.5-5.7) Ao Diam 3.35 cm (2.0-3.7) LVDs 2.90 cm (3.5-5.7) IVSd 1.13 cm (0.6-1.1) PWd 1.05 cm (0.6-1.1) EF (Teich) 72.60% EPSs 1.38 cm FS 41.90% EDV (Teich) 117.70 mL ESV (Teich) 32.20 mL LV Diastology E Decel Time 210.00 (160-240 msec) E/A Ratio 1.04 MED E' 5.20 (< 7 cm/sec) MED A' 8.50 cm/s E'/MED E' Ratio 17.77 (>14) LAT E' 7.40 (<10 cm/sec) LAT A' 9.30 cm/s E/LAT E' Ratio 12.49 (>14) Aortic Valve LVOT Max 87.00 (70-110 cm/s) LVOT VTI 19.34 cm AoV Peak David. 117.00 (50-130 cm/s) AO Peak GR. 5.50 mmHg AO Mean GR. 2.80 (<5 mmHg) AO VTI 25.39 (18-25 cm) CATHERINE (VTI) 2.37 (2.5-4.5 cm2) Mitral Valve MV A Velocity 88.00 (40-130 cm/s) E/A Ratio 1.04 MV Decel. Time 210.00 (160-240 ms) MV PHT 63.00 ms Pulmonary Valve PV Peak Velocity 75.00 (50-150 cm/s) Tricuspid Valve TR P. Velocity 228.00 cm/s RAP Estimate 10.00 mmHg RVSP 30.80 mmHg Left Ventricle Left atrium is mildly enlarged, left ventricle is normal size, estimated ejection fraction approximately 50%, there is moderate hypokinesis involving mid to distal septal and apical wall. Grade 1 diastolic dysfunction seen without tissue Doppler evidence of raise left atrial pressure. Right Ventricle Right atrium right ventricular mildly enlarged with normal contractility. Aortic Valve Aortic valve is minimally thickened and fibrosed there is no aortic stenosis or aortic insufficiency. Mitral Valve Mitral valve leaflets are minimally thickened, there is mild mitral regurgitation. Tricuspid Valve Tricuspid valve is grossly normal, there is mild tricuspid regurgitation, calculated right ventricular systolic pressure 31 mmHg. Pulmonic Valve Pulmonic valve is poorly visualized. Great Vessels Aortic root is normal size. Inferior vena cava is poorly visualized. Pericardium No significant pericardial effusion noted. Conclusion 1. Mild biatrial enlargement, normal left ventricular size, mild concentric left ventricular hypertrophy, estimated ejection fraction 50% with segmental wall motion abnormality described above, grade 1 diastolic dysfunction seen without tissue Doppler evidence of raise left atrial pressure. 2. Mildly enlarged right ventricle with normal contractility. 3. Mild mitral and tricuspid regurgitation. Calculated right ventricular systolic pressure is 31 mmHg. 4. No significant pericardial effusion noted. 5. Inferior vena cava is poorly visualized. Electronically signed by : Zana Nix MD 05/05/2022 06:00:29
--- NOTE | 2022-05-04 15:49 | PC.NURSE ---
Report called to Dianna BURGESS
--- NOTE | 2022-05-04 15:57 | PC.NURSE ---
notified receiving nurse that pt covid test is not resulted, when it is resulted will bring pt to room.
--- NOTE | 2022-05-04 16:01 | PC.NURSE ---
dr chapin at bedside
--- NOTE | 2022-05-04 16:03 | PC.NURSE ---
rad at bedside to do echo at bedside
--- NOTE | 2022-05-04 16:28 | EXP.HP ---
History of Present Illness *Admission Date: 05/04/22 *Reason for visit:: Chief complaint: Chest pain *History of present illness: This is a 76-year-old male that presents to [facility] emergency department with concerns of chest pain that started early this morning. His past medical history significant for diabetes, coronary disease, degenerative disc disease lumbar spine. He reports approximately 5:00 in the morning he started feeling left anterior upper chest pain characterized as pressure and similar to previous chest pain that led to left heart cath several years ago. He reports associated shortness of air but no nausea vomiting or diaphoresis. He reports pain radiated to his jaws. He identified no confusion. He presented to the ED for evaluation. In the ED his electrolytes identify hypokalemia and his initial troponin is negative. His ECG identified sinus rhythm rate of [address]-T changes and QTc of 419ms. His HEART score=5 and his DESTINEE score=5. Cardiology was consulted out of the ED. [facility] Disclaimer: The information contained in this section may have been updated after the patient was seen, as this information can be updated by other users. Medical History (Updated 05/04/22 @ 16:38 by Kemal Horn MD) Benign prostatic hyperplasia CAD (coronary artery disease) Diabetes mellitus, type 2 GERD (gastroesophageal reflux disease) History of left heart catheterization (LHC) HLD (hyperlipidemia) Hypertension Surgical History (Updated 05/04/22 @ 16:35 by Kemal Horn MD) History of colonoscopy Hx of bilateral hip replacements Right cataract Status post left heart catheterization Family History (Updated 05/04/22 @ 16:36 by Kemal Horn MD) Mother COPD (chronic obstructive pulmonary disease) Father Coronary artery disease Social History Smoking Status: Never smoker second hand exposure: No alcohol intake: never counseling provided: none substance use type: denies use current occupational status: retired Travel in the last 8 weeks: Inside the [place] household members: spouse housing: house current occupational exposures/hazards: No caffeine: No Review of Systems Review of Systems Review of systems:: pertinent systems reviewed and negative unless documented below Constitutional Constitutional: Denies headache(s) and Denies weakness ENT Ears, Nose, Mouth, and Throat: Denies headache(s) *Cardiovascular Cardiovascular: Reports chest pain, Reports chest pain at rest, Reports dyspnea and Denies dyspnea on exertion *Respiratory Respiratory: Reports dyspnea and Denies dyspnea on exertion *Musculoskeletal Musculoskeletal: Denies numbness *Neurologic Neurologic: Denies headache(s), Denies numbness and Denies weakness Meds Home Medications and Allergies Home Medications Medication Instructions Recorded Confirmed Type aspirin 81 mg tablet,delayed 81 mg PO QDAY HEART. 03/27/17 05/04/22 History release (Adult Low Dose Aspirin) dutasteride 0.5 mg-tamsulosin ER 1 cap PO QDAY bladder problems 03/27/17 05/04/22 History 0.4 mg capsule ext.release 24hr mphas [id number] C-Mn 500 1 cap PO DAILY Supplement 08/14/18 05/04/22 History mg-400 mg capsule ascorbic acid (vitamin C) 500 mg 500 mg PO DAILY . 08/19/20 05/04/22 History capsule cholecalciferol (vitamin D3) 50 50 mcg PO DAILY Supplement 08/19/20 05/04/22 History mcg (2,000 unit) capsule pantoprazole 40 mg tablet,delayed 40 mg PO DAILY acid reflux 08/19/20 05/04/22 History release zinc 50 mg tablet 50 mg PO DAILY Supplement 08/19/20 05/04/22 History atorvastatin 40 mg tablet 40 mg PO DAILY Cholesterol 05/04/22 05/04/22 History carvedilol phosphate 40 mg 40 mg PO DAILY High blood pressure 05/04/22 05/04/22 History capsule,[id number] multiphase empagliflozin 25 mg tablet 25 mg PO DAILY Diabetes 05/04/22 05/04/22 History (Jardiance) lis
--- NOTE | 2022-05-04 16:28 | PC.NURSE ---
pt taken to room on floor
--- NOTE | 2022-05-04 16:33 | PC.NURSE ---
arrived by w/c at 16:32
[2022-05-04 17:24] LABS: POC Glucose,Bedside 114 (70-110)
[2022-05-04 18:28] LABS: Troponin I < 0.01 ng/ml (0.00-0.034)
[2022-05-04 20:07] LABS: POC Glucose,Bedside 149 (70-110)
[2022-05-04 20:28] LABS: Troponin I < 0.01 ng/ml (0.00-0.034)
[2022-05-05] VITALS (21 sets, daily range): BP systolic 110–141; BP diastolic 67–94; PULSE 18–84; RESP 14–18; TEMP 36.3–37.1; O2SAT 91–98; BMI 31.2
--- NOTE | 2022-05-05 04:21 | PC.NURSE ---
patient has rested well through the night. no complaints of pain. stable on room air. vss. has been npo since midnight for possible cath in the am.
[2022-05-05 05:43] LABS: POC Glucose,Bedside 132 (70-110)
--- NOTE | 2022-05-05 07:08 | HMH.PHAINT1 ---
Pharmacy Intervention Comments: medication reconciliation completed using external fill history
[2022-05-05 07:16] LABS: Basophils # 0.1 K/mm3 (0-0.2); Basophils % 1.3 % (0.1-2.0); Eosinophils # 0.3 K/mm3 (0.0-0.4); Eosinophils % 3.5 % (0.1-12.0); Hematocrit 42.8 % (42.0-52.0); Hemoglobin 14.1 g/dL (14.1-18.0); Lymphocytes # 2.8 K/mm3 (0.7-4.5); Lymphocytes % 30.4 % (10-50); Mean Corpuscular Hemoglobin 29.3 pg (27.0-31.2); Mean Corpuscular Volume 88.7 fl (80-94); Mean Platelet Volume 9.5 fl (7.4-10.4); Monocytes # 0.5 K/mm3 (0.1-1.0); Monocytes % 5.2 % (1.7-9.3); Neutrophils # 5.5 K/mm3 (1.8-7.8); Neutrophils % 59.7 % (37.0-80.0); Platelet Count 223 K/mm3 (142-424); Red Blood Count 4.83 M/mm3 (4.60-6.20); Red Cell Distribution Width 14.4 % (11.5-17.5); White Blood Count 9.2 K/mm3 (4.8-10.8)
[2022-05-05 07:29] LABS: Alanine Aminotransferase 36 U/L (12-78); Albumin Level 4.3 g/dl (3.5-5.0); Alkaline Phosphatase 77 U/L (38-126); Anion Gap 11.6 mEq/L (5-15); Aspartate Amino Transferase 38 U/L (17-59); Bilirubin,Direct 0.3 mg/dl (0.0-0.4); Bilirubin,Indirect 0.8 mg/dL (0.0-0.9); Bilirubin,Total 1.1 mg/dl (0.2-1.3); Bilirubin,Unconjugated 0.9 mg/dL (0.0-1.1); Blood Urea Nitrogen 11 mg/dl (9-20); Carbon Dioxide 27 mmol/L (22.0-30.0); Chloride 106 mmol/L (98-107); Chol/HDL Ratio 3.1 (1-3.5); Cholesterol 117 mg/dl (140-200); Creatinine Clearance Estimated 87 mL/min (50-200); Estimated Glomerular Filt Rate 94 ml/min (>60); GFR (African American) 114 ML/MIN (>60); Glucose 155 mg/dl (74-100); HDL Cholesterol 38 mg/dl (40-60); Potassium 3.6 mmoL/L (3.5-5.1); Sodium 141 mmol/L (136-145); Total Protein,Serum 7.5 g/dl (6.3-8.2); Triglycerides 151 mg/dl (30-150); VLDL Cholesterol 30 mg/dL (0-40)
[2022-05-05 07:40] LABS: Direct LDL Cholesterol 53.33 mg/dL (100-129)
[2022-05-05 07:49] LABS: Magnesium 2.2 mg/dl (1.6-2.3)
[2022-05-05 08:44] LABS: Hemoglobin A1C 7.4 % (4.0-6.0)
--- NOTE | 2022-05-05 09:36 | EXP.CARD.PN ---
Subjective Subjective Date: 05/05/22 Time: 08:30 Principal diagnosis: angina, abnormal echo Interval history: This is a 76-year-old gentleman who presented to the emergency department with complaints of chest pain. The patient states that the pain woke him up at 5 AM yesterday morning with discomfort in his chest. He states that this was a left-sided pain going up to his left shoulder. He described it as a nagging, tight, aching sensation. He states that it persisted on and off throughout the day. When he was eating lunch he had sudden onset of substernal pain and pressure that was radiating to his jaws and his neck. The patient states that he did feel nauseated and just did not feel well. He decided to drive himself to the emergency department. He has ruled out for an VT but does have an abnormal echocardiogram with new onset regional wall motion abnormalities. The patient states that he has had a little bit of chest pain on and off throughout the night but it is better. He denies any shortness of breath or edema. He denies any fever, chills, nausea, vomiting, diarrhea, PND or orthopnea. He does complain of fatigue and just having no energy to do anything which is new for him as well. Exam Data for Last 24 hours Vital signs and Labs for Last 24 Hours: Temp Pulse Resp BP Pulse Ox 97.7 F 71 18 136/71 97 05/05/22 07:20 05/05/22 07:20 05/05/22 07:20 05/05/22 07:20 05/05/22 07:20 Laboratory Results - last 24 hr 05/04/22 12:24: Troponin I < 0.01 05/04/22 13:53: WBC 9.2, RBC 4.83, Hgb 14.3, Hct 42.3, MCV 87.6, MCH 29.5, MCHC 33.7, RDW 14.0, Plt Count 220, MPV 9.4, Neut % (Auto) 56.4, Lymph % (Auto) 31.4, [place] % (Auto) 6.3, Eos % (Auto) 4.7, Baso % (Auto) 1.1, Neut # (Auto) 5.2, Lymph # (Auto) 2.9, [place] # (Auto) 0.6, Eos # (Auto) 0.4, Baso # (Auto) 0.1 05/04/22 13:53: Sodium 139, Potassium 3.3 L, Chloride 103, Carbon Dioxide 29, Anion Gap 10.3, BUN 11, Creatinine 0.80, Estimated Creat Clear 82, Estimated GFR 94, Est GFR ( Amer) 114, Glucose 149 H, Calcium 8.8, Troponin I < 0.01 05/04/22 15:16: SARS-CoV-2 (PCR) Not detected, Influenza A Untype (PCR) Not detected, Influenza Type B (PCR) Not detected 05/04/22 17:15: POC Glucose 114 H 05/04/22 19:51: Troponin I < 0.01 05/04/22 19:57: POC Glucose 149 H 05/05/22 05:35: POC Glucose 132 H 05/05/22 07:00: WBC 9.2, RBC 4.83, Hgb 14.1, Hct 42.8, MCV 88.7, MCH 29.3, MCHC 33.0, RDW 14.4, Plt Count 223, MPV 9.5, Neut % (Auto) 59.7, Lymph % (Auto) 30.4, [place] % (Auto) 5.2, Eos % (Auto) 3.5, Baso % (Auto) 1.3, Neut # (Auto) 5.5, Lymph # (Auto) 2.8, [place] # (Auto) 0.5, Eos # (Auto) 0.3, Baso # (Auto) 0.1 05/05/22 07:00: Sodium 141, Potassium 3.6, Chloride 106, Carbon Dioxide 27, Anion Gap 11.6, BUN 11, Creatinine 0.80, Estimated Creat Clear 87, Estimated GFR 94, Est GFR ( Amer) 114, Glucose 155 H, Calcium 9.0, Total Bilirubin 1.1, Direct Bilirubin 0.3, Conjugated Bilirubin 0.0, Indirect Bilirubin 0.8, Unconjugated Bilirubin 0.9, AST 38, ALT 36, Alkaline Phosphatase 77, Total Protein 7.5, Albumin 4.3, Triglycerides 151 H, Cholesterol 117 L, LDL Cholesterol Direct 53.33 L, VLDL Cholesterol 30, HDL Cholesterol 38 L, Cholesterol/HDL Ratio 3.1 05/05/22 07:00: Hemoglobin A1c 7.4 H 05/05/22 07:00: Magnesium 2.2 I & O for Last 24 hours: Intake & Output 05/02/22 05/03/22 05/04/22 05/05/22 23:59 23:59 23:59 23:59 Intake Total 360 / 360 0 / 0 Output Total 0 / 0 Balance 360 / 360 0 / 0 Weight 211 lb 7 oz 211 lb 4 oz Narrative: Telemetry strip is sinus rhythm. Echocardiogram shows: Left Ventricle Left atrium is mildly enlarged, left ventricle is normal size, estimated ejection fraction approximately 50%, there is moderate hypokinesis involving mid to distal septal and apical wall. Grade 1 diastolic dysfunction seen without tissue Doppler evidence of raise left atrial pressure. Right Ventricle Right atrium right ventricular mildly enlarged with normal contractility. Aortic Valv
--- NOTE | 2022-05-05 10:08 | IR_ITS ---
APPROVED REPORT Patient Location: Inpatient Obstetrician/Gynecologist: DONNA Rosales RT (R) PROCEDURES Left heart catheterization Left ventriculogram Selective coronary angiogram Drug-eluting stent deployment to the ostial proximal mid circumflex artery Drug-eluting stent deployment to the first obtuse marginal artery INDICATION Coronary artery disease, Unstable angina, Extensive complex calcified coronary disease Informed consent was obtained prior to the procedure. COMPLICATIONS None Estimated Blood Loss: Less than 10 mls TECHNIQUE One percent lidocaine used to anesthetize the right anterior aspect of the wrist. The right radial artery was accessed via the Seldinger technique. A 6 [place] sheath was placed in the right radial artery. 2.5 mg of verapamil, 800 mcg of nitroglycerin, 1mg Lidocaine and 5000 U Heparin were given through the arterial sheath. The papa catheter was also used to perform left heart catheterization, left ventriculogram and selective coronary angiogram. At the end the diagnostic angiogram therapeutic heparin was administered giving a therapeutic ACT and the guide catheter was placed in left main artery followed by Choice PT extra-support wire being placed down the circumflex artery. A guide liner was required for additional assistance. The calcified lesion was severe extensive and a total of 20 various balloons were used for the procedure in order to deliver a total of 5 drug-eluting stents which included 4 mm x 8 mm resolute stent with an additional 2.75 x 12 mm stent with an additional 3 mm x 26 mm resolute Angel Luis stent with an additional 3 mm x 22 mm resolute [place] stent and a 2.75 x 15 mm resolute Angel Luis stent. All stents were dilated with a 4 mm noncompliant balloon at 24 debra including the ostial segment of the circumflex artery which extended down into the obtuse marginal artery. At the end of the procedure the apparatus was removed the sheath was removed and hemostasis was achieved using TR banding patient was transferred to the postop holding area in stable condition. This was a long complex procedure requiring multiple balloon advancements with extensive predilatation ANGIOGRAPHIC RESULTS The left main artery Normal The left anterior descending artery Has ostial proximal calcified 20 to 30% stenosis followed by a proximal to mid vessel stent which is widely patent with minimal in-stent restenosis. There is an additional concentric 50% stenosis in the mid LAD at a 2.5 mm vessel. The circumflex artery Is nondominant yet still large severely calcified in the ostial proximal segment with a 70% stenosis by angiography. The first obtuse marginal artery is large and has an ostial eccentric 70 to 80% stenosis The right coronary artery Dominant vessel with proximal 70% concentric calcified stenosis with mid vessel 70 to 80% calcified concentric stenoses and distal diffuse 40% calcified stenoses with extensive calcification in the posterior lateral branch and posterior descending artery all ranging between 40 and 70% The PADILLA ventriculogram reveals Not performed The left ventricular end-diastolic pressure Not measured IMPRESSION Severe to critical extensive calcification in the circumflex artery extending into a large obtuse marginal artery with successful reconstruction of the ostial proximal mid distal circumflex artery extending into the first obtuse marginal artery severe to critical calcified disease reduced to less than 10% with 5 contiguous drug-eluting stents all postdilated with a 4 mm noncompliant balloon Persistent extensive severe calcification throughout the dominant right coronary artery PLAN 1. Keep patient in hospital over the weekend for IV fluids. Over
[2022-05-05 14:05] LABS: CATHL Activated Clotting Time > 400 SEC (74-125)
[2022-05-05 14:06] LABS: CATHL Activated Clotting Time 233 SEC (74-125)
[2022-05-05 14:07] LABS: CATHL Activated Clotting Time > 400 SEC (74-125)
--- NOTE | 2022-05-05 14:20 | PC.NURSE ---
report from bundle tier and labeler, patient returning. Per report, the patient will return to bundle tier and labeler for additional procedure on Monday.
--- NOTE | 2022-05-05 16:24 | EXP.PN ---
Subjective *Date: 05/05/22 *Time: 16:24 Interval history: Date of service May 05, 2022 The patient reports no acute events overnight. He reports his chest pain has eased up. Nursing staff report that he remains afebrile with stable vital signs saturating appropriately on room air. He has been n.p.o. for anticipated left heart cath today. We have reviewed and discussed his laboratory evaluation and I personally interpreted his labs as follows: CBC with a normal white blood cell count 9.2, hemoglobin 14.1, hematocrit 42.8, platelet count 223. His electrolytes are normal including sodium 141 and potassium 3.6. His BUN is 11 and his creatinine is 0.8. His glucose trend has been under 175. His morning hemoglobin A1c 7.4%. His morning fasting lipid panel identifies total cholesterol 117, HDL 38 and LDL 53. His triglycerides are 151. His liver function studies are normal. His echocardiogram identifies an ejection fraction of 50% with some hypokinesis and grade 1 diastolic dysfunction. His chest x-ray identified no acute disease. I have personally discussed the case with his cardiology team including CARITO and we discussed plans for left heart cath today further recommendations pending findings. Exam Data for Last 24 hours Vital signs and Labs for Last 24 Hours: Temp Pulse Resp BP Pulse Ox 97.9 F 76 17 136/77 98 05/05/22 15:00 05/05/22 15:00 05/05/22 15:00 05/05/22 15:00 05/05/22 15:00 Laboratory Results - last 24 hr 05/04/22 12:24: Troponin I < 0.01 05/04/22 17:15: POC Glucose 114 H 05/04/22 19:51: Troponin I < 0.01 05/04/22 19:57: POC Glucose 149 H 05/05/22 05:35: POC Glucose 132 H 05/05/22 07:00: WBC 9.2, RBC 4.83, Hgb 14.1, Hct 42.8, MCV 88.7, MCH 29.3, MCHC 33.0, RDW 14.4, Plt Count 223, MPV 9.5, Neut % (Auto) 59.7, Lymph % (Auto) 30.4, [place] % (Auto) 5.2, Eos % (Auto) 3.5, Baso % (Auto) 1.3, Neut # (Auto) 5.5, Lymph # (Auto) 2.8, [place] # (Auto) 0.5, Eos # (Auto) 0.3, Baso # (Auto) 0.1 05/05/22 07:00: Sodium 141, Potassium 3.6, Chloride 106, Carbon Dioxide 27, Anion Gap 11.6, BUN 11, Creatinine 0.80, Estimated Creat Clear 87, Estimated GFR 94, Est GFR ( Amer) 114, Glucose 155 H, Calcium 9.0, Total Bilirubin 1.1, Direct Bilirubin 0.3, Conjugated Bilirubin 0.0, Indirect Bilirubin 0.8, Unconjugated Bilirubin 0.9, AST 38, ALT 36, Alkaline Phosphatase 77, Total Protein 7.5, Albumin 4.3, Triglycerides 151 H, Cholesterol 117 L, LDL Cholesterol Direct 53.33 L, VLDL Cholesterol 30, HDL Cholesterol 38 L, Cholesterol/HDL Ratio 3.1 05/05/22 07:00: Hemoglobin A1c 7.4 H 05/05/22 07:00: Magnesium 2.2 05/05/22 12:51: Activated Clotting Time > 400 H* 05/05/22 13:42: Activated Clotting Time 233 H* D 05/05/22 14:29: Activated Clotting Time > 400 H* D I & O for Last 24 hours: Intake & Output 05/02/22 05/03/22 05/04/22 05/05/22 23:59 23:59 23:59 23:59 Intake Total 360 / 360 1000 / 1000 Output Total 170 / 170 Balance 360 / 360 830 / 830 Weight 95.906 kg 95.821 kg Constitutional Constitutional: no acute distress, obese and cooperative *Routine HEENT Exam Head: Present normocephalic Eye: Present EOMI and PERRL ENT: Present mucous membranes moist Comments: [place] *Routine Neck Exam Neck: Present supple; Absent JVD or lymphadenopathy *Routine Respiratory Exam Respiratory: Present rhonchi, normal respiratory effort and symmetric chest movement *Routine Cardiovascular Exam Cardiovascular: Present RRR; Absent murmur *Routine Abdominal Exam Abdominal: Present soft and normoactive bowel sounds; Absent tenderness *Routine Extremities Exam Extremities: Present full ROM, pulses intact and normal capillary refill; Absent cyanosis, clubbing or edema *Routine Skin Exam Skin: Present warm; Absent rash *Routine Neurological Exam Neurological: Present alert, oriented X3, moving all extremities, vision grossly intact, hearing grossly intact and normal speech; Absent sensory deficit or motor deficit Routine Psychiatric Exam Psych
[2022-05-05 20:11] LABS: POC Glucose,Bedside 136 (70-110)
[2022-05-06] VITALS (7 sets, daily range): BP systolic 125–165; BP diastolic 64–98; PULSE 74–100; RESP 16–22; TEMP 36.6–36.8; O2SAT 93–97; BMI 31.8; BMI 31.6
--- NOTE | 2022-05-06 04:37 | PC.NURSE ---
patient rested well through the night. no complaints of pain. right radial dressing c/d/i. stable on room air.
[2022-05-06 05:36] LABS: POC Glucose,Bedside 111 (70-110)
[2022-05-06 06:51] LABS: Anion Gap 13.5 mEq/L (5-15); Blood Urea Nitrogen 9 mg/dl (9-20); Calcium 8.3 mg/dl (8.4-10.2); Carbon Dioxide 21 mmol/L (22.0-30.0); Chloride 107 mmol/L (98-107); Creatinine Clearance Estimated 88 mL/min (50-200); Estimated Glomerular Filt Rate 110 ml/min (>60); GFR (African American) 133 ML/MIN (>60); Glucose 107 mg/dl (74-100); Potassium 3.5 mmoL/L (3.5-5.1); Sodium 138 mmol/L (136-145)
[2022-05-06 06:55] LABS: Basophils # 0.1 K/mm3 (0-0.2); Monocytes # 0.7 K/mm3 (0.1-1.0)
[2022-05-06 07:02] LABS: Basophils % 0.6 % (0.1-2.0); Eosinophils # 0.3 K/mm3 (0.0-0.4); Eosinophils % 2.8 % (0.1-12.0); Hematocrit 38.3 % (42.0-52.0); Lymphocytes # 2.3 K/mm3 (0.7-4.5); Mean Corpuscular HGB Conc 32.2 g/dL (31.8-35.4); Mean Platelet Volume 9.2 fl (7.4-10.4); Neutrophils # 7.7 K/mm3 (1.8-7.8); Neutrophils % 69.6 % (37.0-80.0); Platelet Count 204 K/mm3 (142-424); Red Blood Count 4.25 M/mm3 (4.60-6.20); Red Cell Distribution Width 14.4 % (11.5-17.5)
[2022-05-06 07:03] LABS: Hemoglobin 12.3 g/dL (14.1-18.0)
--- NOTE | 2022-05-06 07:19 | EXP.PN ---
Subjective *Date: 05/06/22 *Time: 11:22 Interval history: Date of service May 06, 2022 The patient reports no acute events overnight. He denies no chest pain after his cath intervention. Nursing staff report that he remains afebrile with stable vital signs and saturating appropriately on room air. We have reviewed and discussed his morning labs and I have personally interpreted his laboratory results as follows: CBC with a mild leukocytoses white blood cell count 11, hemoglobin 12.3 and stable, hematocrit 38.3 and platelet count 204. His chemistry panel identifies normal electrolytes with a CO2 of 21, BUN 9, creatinine 0.7 and glucose trend under 150. His echocardiogram identifies EF of 50% with grade 1 diastolic dysfunction. Exam Data for Last 24 hours Vital signs and Labs for Last 24 Hours: Temp Pulse Resp BP Pulse Ox 98.2 F 74 16 125/64 93 L 05/06/22 04:00 05/06/22 04:00 05/06/22 04:00 05/06/22 04:00 05/06/22 04:00 Laboratory Results - last 24 hr 05/05/22 07:00: WBC 9.2, RBC 4.83, Hgb 14.1, Hct 42.8, MCV 88.7, MCH 29.3, MCHC 33.0, RDW 14.4, Plt Count 223, MPV 9.5, Neut % (Auto) 59.7, Lymph % (Auto) 30.4, [place] % (Auto) 5.2, Eos % (Auto) 3.5, Baso % (Auto) 1.3, Neut # (Auto) 5.5, Lymph # (Auto) 2.8, [place] # (Auto) 0.5, Eos # (Auto) 0.3, Baso # (Auto) 0.1 05/05/22 07:00: Sodium 141, Potassium 3.6, Chloride 106, Carbon Dioxide 27, Anion Gap 11.6, BUN 11, Creatinine 0.80, Estimated Creat Clear 87, Estimated GFR 94, Est GFR ( Amer) 114, Glucose 155 H, Calcium 9.0, Total Bilirubin 1.1, Direct Bilirubin 0.3, Conjugated Bilirubin 0.0, Indirect Bilirubin 0.8, Unconjugated Bilirubin 0.9, AST 38, ALT 36, Alkaline Phosphatase 77, Total Protein 7.5, Albumin 4.3, Triglycerides 151 H, Cholesterol 117 L, LDL Cholesterol Direct 53.33 L, VLDL Cholesterol 30, HDL Cholesterol 38 L, Cholesterol/HDL Ratio 3.1 05/05/22 07:00: Hemoglobin A1c 7.4 H 05/05/22 07:00: Magnesium 2.2 05/05/22 12:51: Activated Clotting Time > 400 H* 05/05/22 13:42: Activated Clotting Time 233 H* D 05/05/22 14:29: Activated Clotting Time > 400 H* D 05/05/22 20:01: POC Glucose 136 H 05/06/22 05:26: POC Glucose 111 H 05/06/22 05:48: WBC 11.0 H, RBC 4.25 L, Hgb 12.3 L D, Hct 38.3 L, MCV 90.0, MCH 29.0, MCHC 32.2, RDW 14.4, Plt Count 204, MPV 9.2, Neut % (Auto) 69.6, Lymph % (Auto) 21.0, [place] % (Auto) 6.0, Eos % (Auto) 2.8, Baso % (Auto) 0.6, Neut # (Auto) 7.7, Lymph # (Auto) 2.3, [place] # (Auto) 0.7, Eos # (Auto) 0.3, Baso # (Auto) 0.1 05/06/22 06:35: Sodium 138, Potassium 3.5, Chloride 107, Carbon Dioxide 21 L, Anion Gap 13.5, BUN 9, Creatinine 0.70, Estimated Creat Clear 88, Estimated GFR 110, Est GFR ( Amer) 133, Glucose 107 H D, Calcium 8.3 L I & O for Last 24 hours: Intake & Output 05/03/22 05/04/22 05/05/22 05/06/22 23:59 23:59 23:59 23:59 Intake Total 360 / 360 1860 / 1860 Output Total 170 / 170 400 / 400 Balance 360 / 360 1690 / 1690 -400 / -400 Weight 95.906 kg 95.821 kg 97.341 kg Constitutional Constitutional: no acute distress, obese and cooperative *Routine HEENT Exam Head: Present normocephalic Eye: Present EOMI and PERRL ENT: Present mucous membranes moist Comments: [place] *Routine Neck Exam Neck: Present supple; Absent JVD or lymphadenopathy *Routine Respiratory Exam Respiratory: Present rhonchi, normal respiratory effort and symmetric chest movement *Routine Cardiovascular Exam Cardiovascular: Present RRR; Absent murmur *Routine Abdominal Exam Abdominal: Present soft and normoactive bowel sounds; Absent tenderness *Routine Extremities Exam Extremities: Present full ROM, pulses intact and normal capillary refill; Absent cyanosis, clubbing or edema *Routine Skin Exam Skin: Present warm; Absent rash *Routine Neurological Exam Neurological: Present alert, oriented X3, moving all extremities, vision grossly intact, hearing grossly intact and normal speech; Absent sensory deficit or motor deficit Routine Psychiatric Exam Psychiatric
--- NOTE | 2022-05-06 10:37 | EXP.CARD.PN ---
Subjective Subjective Date: 05/06/22 Time: 09:30 Principal diagnosis: angina, abnormal echo Interval history: This is a 76-year-old white gentleman who presented to the emergency department complaints of chest pain. The patient had an abnormal echocardiogram showing some regional wall motion abnormalities. The patient underwent left cardiac catheterization yesterday with 5 stents placed to the circumflex artery and 20 balloon angioplasties as well. He has persistent disease to the right coronary artery that will need to be intervened on prior to his discharge home. This morning he denies any chest pain or pressure. He does have some shortness of breath with exertion but this is improved. He states his fatigue and lack of energy has been a huge concern for him. He states he has not really been up that much to see if that is better yet. He denies any lower extremity edema. He denies any fever, chills, nausea, vomiting, diarrhea, PND or orthopnea. Exam Data for Last 24 hours Vital signs and Labs for Last 24 Hours: Temp Pulse Resp BP Pulse Ox 97.8 F 88 18 143/87 H 97 05/06/22 08:00 05/06/22 08:00 05/06/22 08:00 05/06/22 08:00 05/06/22 08:00 Laboratory Results - last 24 hr 05/05/22 12:51: Activated Clotting Time > 400 H* 05/05/22 13:42: Activated Clotting Time 233 H* D 05/05/22 14:29: Activated Clotting Time > 400 H* D 05/05/22 20:01: POC Glucose 136 H 05/06/22 05:26: POC Glucose 111 H 05/06/22 05:48: WBC 11.0 H, RBC 4.25 L, Hgb 12.3 L D, Hct 38.3 L, MCV 90.0, MCH 29.0, MCHC 32.2, RDW 14.4, Plt Count 204, MPV 9.2, Neut % (Auto) 69.6, Lymph % (Auto) 21.0, [place] % (Auto) 6.0, Eos % (Auto) 2.8, Baso % (Auto) 0.6, Neut # (Auto) 7.7, Lymph # (Auto) 2.3, [place] # (Auto) 0.7, Eos # (Auto) 0.3, Baso # (Auto) 0.1 05/06/22 06:35: Sodium 138, Potassium 3.5, Chloride 107, Carbon Dioxide 21 L, Anion Gap 13.5, BUN 9, Creatinine 0.70, Estimated Creat Clear 88, Estimated GFR 110, Est GFR ( Amer) 133, Glucose 107 H D, Calcium 8.3 L I & O for Last 24 hours: Intake & Output 05/03/22 05/04/22 05/05/22 05/06/22 23:59 23:59 23:59 23:59 Intake Total 360 / 360 1860 / 1860 240 / 240 Output Total 170 / 170 400 / 400 Balance 360 / 360 1690 / 1690 -160 / -160 Weight 211 lb 7 oz 211 lb 4 oz 214 lb 9.6 oz Constitutional Constitutional: no acute distress and obese *Routine HEENT Exam Head: Present normocephalic and atraumatic ENT: Present mucous membranes moist *Routine Neck Exam Neck: Present supple, full ROM and normal carotid upstroke; Absent JVD, carotid bruit or lymphadenopathy *Routine Respiratory Exam Respiratory: Present CTA bilaterally, normal respiratory effort, able to speak in complete sentences and symmetric chest movement *Routine Cardiovascular Exam Cardiovascular: Present RRR, Normal S1 and Normal S2; Absent murmur or gallop *Routine Abdominal Exam Abdominal: Present soft and normoactive bowel sounds; Absent tenderness, distended or organomegaly *Routine Extremities Exam Extremities: Present full ROM, pulses intact and normal capillary refill; Absent cyanosis, clubbing or edema *Routine Skin Exam Skin: Present intact and warm; Absent erythema *Routine Neurological Exam Neurological: Present alert, oriented X3 and CN II-XII intact; Absent sensory deficit or motor deficit Routine Psychiatric Exam Psychiatric: Present normal affect Progress Note: A&P Assessment and plan (1) Angina pectoris: Status: Acute (2) CAD (coronary artery disease): Status: Acute (3) Diabetes mellitus, type 2: Status: Acute (4) Regional wall motion abnormality of heart: Status: Acute (5) Abnormal echocardiogram: Status: Acute (6) Stented coronary artery: Status: Chronic (7) Hypertensive disorder: Status: Chronic (8) Diastolic dysfunction: Status: Chronic (9) Acid reflux: Status: Chronic (10) HLD (hyperlipidemia): Status: Chronic Assessment and Plan Assessment and Plan f
[2022-05-06 11:14] LABS: POC Glucose,Bedside 140 (70-110)
[2022-05-06 15:52] LABS: POC Glucose,Bedside 182 (70-110)
--- NOTE | 2022-05-06 19:32 | PC.NURSE ---
A&OX4. TOLERATING RA WELL. CATH SITE TO R RADIAL CDI. NO BLEEDING NOTED. UP INDEPENDENTLY IN ROOM, NO NEEDS T/O SHIFT. VSS
--- NOTE | 2022-05-06 20:19 | PC.NURSE ---
pt. refused 5 units of insulin.
[2022-05-06 20:23] LABS: POC Glucose,Bedside 157 (70-110)
[2022-05-07] VITALS (7 sets, daily range): BP systolic 112–155; BP diastolic 59–89; PULSE 72–94; RESP 16–18; TEMP 36.6–36.8; O2SAT 93–96; BMI 31.1
--- NOTE | 2022-05-07 04:08 | PC.NURSE ---
Pt. aox4 and up ad citlaly. NSR on tele and asks if he needs anything.
[2022-05-07 05:51] LABS: POC Glucose,Bedside 150 (70-110)
--- NOTE | 2022-05-07 07:25 | EXP.PN ---
Subjective *Date: 05/07/22 *Time: 08:45 Interval history: Date of service May 07, 2022 The patient reports no acute events overnight. He has been getting up and ambulating in the room with no reported chest pain, palpitations or dizziness. Nursing staff report that he remains afebrile with stable vital signs and saturating appropriately on room air. We have reviewed and discussed his morning labs and I have personally interpreted his labs as follows: CBC with an improved leukocytosis and stable hemoglobin with normal platelet count. He is tolerating his dual antiplatelet therapy and statin therapy with no adverse events. Exam Data for Last 24 hours Vital signs and Labs for Last 24 Hours: Temp Pulse Resp BP Pulse Ox 98.3 F 82 18 150/87 H 93 L 05/07/22 04:00 05/07/22 04:00 05/07/22 04:00 05/07/22 04:00 05/07/22 04:00 Laboratory Results - last 24 hr 05/06/22 11:03: POC Glucose 140 H 05/06/22 15:24: POC Glucose 182 H 05/06/22 20:16: POC Glucose 157 H 05/07/22 05:44: POC Glucose 150 H I & O for Last 24 hours: Intake & Output 05/04/22 05/05/22 05/06/22 05/07/22 23:59 23:59 23:59 23:59 Intake Total 360 / 360 1860 / 1860 1080 / 1080 Output Total 170 / 170 400 / 400 0 / 0 Balance 360 / 360 1690 / 1690 680 / 680 0 / 0 Weight 95.906 kg 95.821 kg 97 kg 95.481 kg Constitutional Constitutional: no acute distress, obese and cooperative *Routine HEENT Exam Head: Present normocephalic Eye: Present EOMI and PERRL ENT: Present mucous membranes moist Comments: [place] *Routine Neck Exam Neck: Present supple; Absent JVD or lymphadenopathy *Routine Respiratory Exam Respiratory: Present rhonchi, normal respiratory effort and symmetric chest movement *Routine Cardiovascular Exam Cardiovascular: Present RRR; Absent murmur *Routine Abdominal Exam Abdominal: Present soft and normoactive bowel sounds; Absent tenderness *Routine Extremities Exam Extremities: Present full ROM, pulses intact and normal capillary refill; Absent cyanosis, clubbing or edema *Routine Skin Exam Skin: Present warm; Absent rash *Routine Neurological Exam Neurological: Present alert, oriented X3, moving all extremities, vision grossly intact, hearing grossly intact and normal speech; Absent sensory deficit or motor deficit Routine Psychiatric Exam Psychiatric: Present normal affect, normal thought process, cooperative, good insight and good judgment Assessment and Plan *Assessment and plan (1) Chest pain: Status: Acute Category: Medical Code(s): R07.9 - Chest pain, unspecified (2) CAD (coronary artery disease): Status: Acute Qualifiers: Associated angina: with other forms of angina Coronary Disease-Associated Artery/Lesion type: [place] artery [place] vs. transplanted heart: [place] heart Qualified Code(s): I25.118 - Atherosclerotic heart disease of [place] coronary artery with other forms of angina pectoris Category: Medical Code(s): I25.10 - Atherosclerotic heart disease of [place] coronary artery without angina pectoris (3) Diabetes mellitus, type 2: Status: Acute Category: Medical Code(s): E11.9 - Type 2 diabetes mellitus without complications Plan This is a 76-year-old male that presents to the emergency department with concerns of chest pain since this morning. His past medical history significant for coronary disease status post left heart cath with 3 stents several years ago. Initial ED evaluation is non-revealing. Problems addressed are as follows: Unstable angina Telemetry monitoring Pulse oximetry monitoring Oxygen therapy to maintain appropriate oxygen saturations Antiplatelet therapy Statin therapy Beta-[place] therapy ARB therapy Nitroglycerin therapy Parenterally administered controlled substance for comfort care ECG reviewed Cardiology consult noted Left heart cath 05/05/2022 with 5 stents and 20 angioplasties to the left side circulation RCA disease
[2022-05-07 08:08] LABS: Basophils # 0.1 K/mm3 (0-0.2); Basophils % 0.6 % (0.1-2.0); Eosinophils # 0.3 K/mm3 (0.0-0.4); Eosinophils % 3.1 % (0.1-12.0); Hematocrit 40.5 % (42.0-52.0); Hemoglobin 13.6 g/dL (14.1-18.0); Lymphocytes # 2.2 K/mm3 (0.7-4.5); Lymphocytes % 22.4 % (10-50); Mean Corpuscular HGB Conc 33.6 g/dL (31.8-35.4); Mean Corpuscular Hemoglobin 29.2 pg (27.0-31.2); Mean Corpuscular Volume 87.1 fl (80-94); Mean Platelet Volume 9.8 fl (7.4-10.4); Monocytes # 0.5 K/mm3 (0.1-1.0); Monocytes % 5.3 % (1.7-9.3); Neutrophils # 6.6 K/mm3 (1.8-7.8); Neutrophils % 68.6 % (37.0-80.0); Platelet Count 223 K/mm3 (142-424); Red Blood Count 4.65 M/mm3 (4.60-6.20); Red Cell Distribution Width 14.4 % (11.5-17.5); White Blood Count 9.7 K/mm3 (4.8-10.8)
[2022-05-07 08:18] LABS: Anion Gap 12.8 mEq/L (5-15); Blood Urea Nitrogen 8 mg/dl (9-20); Calcium 8.8 mg/dl (8.4-10.2); Carbon Dioxide 24 mmol/L (22.0-30.0); Chloride 104 mmol/L (98-107); Creatinine Clearance Estimated 86 mL/min (50-200); Estimated Glomerular Filt Rate 110 ml/min (>60); GFR (African American) 133 ML/MIN (>60); Glucose 206 mg/dl (74-100); Potassium 3.8 mmoL/L (3.5-5.1); Sodium 137 mmol/L (136-145)
[2022-05-07 11:52] LABS: POC Glucose,Bedside 122 (70-110)
--- NOTE | 2022-05-07 16:41 | PC.NURSE ---
PT IS SITTING UP IN THE CHAIR WITH FAMILY IN THE ROOM. ALERT AND ORIENTED X4. NO COMPLAINTS OF CP/SOA. EATING AND DRINKING WELL. AMBULATES IN THE [place]. LUNG SOUNDS CLEAR. ABDOMEN SOFT/NON TENDER WITH ACTIVE BOWEL SOUNDS. VSS. WILL CONTINUE TO MONITOR.
[2022-05-07 16:43] LABS: POC Glucose,Bedside 159 (70-110)
[2022-05-07 20:53] LABS: POC Glucose,Bedside 162 (70-110)
[2022-05-08] VITALS (9 sets, daily range): BP systolic 131–158; BP diastolic 76–94; PULSE 80–89; RESP 16–18; TEMP 36.4–36.7; O2SAT 94–98; BMI 30.5
--- NOTE | 2022-05-08 04:15 | PC.NURSE ---
Pt. resting this am with no issues noted.
[2022-05-08 05:36] LABS: POC Glucose,Bedside 156 (70-110)
--- NOTE | 2022-05-08 08:17 | EXP.PN ---
Subjective *Date: 05/08/22 *Time: 08:17 Interval history: Date of service May 08, 2022 The patient reports no acute events overnight. He continues to ambulate with no chest pain or cardiac symptoms. Nursing staff report that he remains afebrile with stable vital signs and saturating appropriately on room air. His staged cardiac catheterization is planned for tomorrow morning. Exam Data for Last 24 hours Vital signs and Labs for Last 24 Hours: Temp Pulse Resp BP Pulse Ox 97.6 F 89 18 150/76 H 98 05/08/22 08:00 05/08/22 08:00 05/08/22 08:00 05/08/22 08:00 05/08/22 08:00 Laboratory Results - last 24 hr 05/07/22 07:41: WBC 9.7, RBC 4.65, Hgb 13.6 L, Hct 40.5 L, MCV 87.1, MCH 29.2, MCHC 33.6, RDW 14.4, Plt Count 223, MPV 9.8, Neut % (Auto) 68.6, Lymph % (Auto) 22.4, [place] % (Auto) 5.3, Eos % (Auto) 3.1, Baso % (Auto) 0.6, Neut # (Auto) 6.6, Lymph # (Auto) 2.2, [place] # (Auto) 0.5, Eos # (Auto) 0.3, Baso # (Auto) 0.1 05/07/22 07:41: Sodium 137, Potassium 3.8, Chloride 104, Carbon Dioxide 24, Anion Gap 12.8, BUN 8 L, Creatinine 0.70, Estimated Creat Clear 86, Estimated GFR 110, Est GFR ( Amer) 133, Glucose 206 H, Calcium 8.8 05/07/22 11:39: POC Glucose 122 H 05/07/22 16:33: POC Glucose 159 H 05/07/22 20:46: POC Glucose 162 H 05/08/22 05:29: POC Glucose 156 H I & O for Last 24 hours: Intake & Output 05/05/22 05/06/22 05/07/22 05/08/22 23:59 23:59 23:59 23:59 Intake Total 1860 / 1860 1080 / 1080 720 / 720 240 / 240 Output Total 170 / 170 400 / 400 0 / 0 0 / 0 Balance 1690 / 1690 680 / 680 720 / 720 240 / 240 Weight 95.821 kg 97 kg 95.481 kg 93.621 kg Constitutional Constitutional: no acute distress, obese and cooperative *Routine HEENT Exam Head: Present normocephalic Eye: Present EOMI and PERRL ENT: Present mucous membranes moist Comments: [place] *Routine Neck Exam Neck: Present supple; Absent JVD or lymphadenopathy *Routine Respiratory Exam Respiratory: Present rhonchi, normal respiratory effort and symmetric chest movement *Routine Cardiovascular Exam Cardiovascular: Present RRR; Absent murmur *Routine Abdominal Exam Abdominal: Present soft and normoactive bowel sounds; Absent tenderness *Routine Extremities Exam Extremities: Present full ROM, pulses intact and normal capillary refill; Absent cyanosis, clubbing or edema *Routine Skin Exam Skin: Present warm; Absent rash *Routine Neurological Exam Neurological: Present alert, oriented X3, moving all extremities, vision grossly intact, hearing grossly intact and normal speech; Absent sensory deficit or motor deficit Routine Psychiatric Exam Psychiatric: Present normal affect, normal thought process, cooperative, good insight and good judgment Assessment and Plan *Assessment and plan (1) Chest pain: Status: Acute Category: Medical Code(s): R07.9 - Chest pain, unspecified (2) CAD (coronary artery disease): Status: Acute Qualifiers: Coronary Disease-Associated Artery/Lesion type: [place] artery [place] vs. transplanted heart: [place] heart Associated angina: with other forms of angina Qualified Code(s): I25.118 - Atherosclerotic heart disease of [place] coronary artery with other forms of angina pectoris Category: Medical Code(s): I25.10 - Atherosclerotic heart disease of [place] coronary artery without angina pectoris (3) Diabetes mellitus, type 2: Status: Acute Category: Medical Code(s): E11.9 - Type 2 diabetes mellitus without complications Plan This is a 76-year-old male that presents to the emergency department with concerns of chest pain since this morning. His past medical history significant for coronary disease status post left heart cath with 3 stents several years ago. Initial ED evaluation is non-revealing. Problems addressed are as follows: Unstable angina Telemetry monitoring Pulse oximetry monitoring Oxygen therapy to maintain appropriate oxygen saturations An
[2022-05-08 12:03] LABS: POC Glucose,Bedside 138 (70-110)
[2022-05-08 16:37] LABS: POC Glucose,Bedside 159 (70-110)
--- NOTE | 2022-05-08 17:28 | PC.NURSE ---
PT HAS DONE WELL THIS SHIFT, WALKED MULTIPLE TIMES IN THE HALLS. PT C/O A MULLINS, TREATED PER MAR WITH RELIEF. CONSENT FOR CUSTOMER RETENTION REPRESENTATIVE SIGNED, NPO AFTER MIDNIGHT. PT REF INSULIN COVERAGE.
[2022-05-08 20:40] LABS: POC Glucose,Bedside 142 (70-110)
[2022-05-09] VITALS (25 sets, daily range): BP systolic 116–190; BP diastolic 64–124; PULSE 70–103; RESP 16–20; TEMP 36.4–37.2; O2SAT 93–99; BMI 30.6
--- NOTE | 2022-05-09 04:53 | PC.NURSE ---
Pt. is aox4 and walks himself to the restroom. Refuses insulin for the past few days. He has been NPO SINCE 00:00 for a left wrist heart cath.
[2022-05-09 05:26] LABS: POC Glucose,Bedside 119 (70-110)
--- NOTE | 2022-05-09 07:16 | IR_ITS ---
APPROVED REPORT Patient Location: Inpatient PROCEDURES Selective coronary angiogram Intravascular lithotripsy to the proximal mid and distal dominant right coronary Drug-eluting stent deployment to the ostial proximal mid distal dominant right coronary in a contiguous manner INDICATION Coronary artery disease, Informed consent was obtained prior to the procedure. COMPLICATIONS None Estimated Blood Loss: Less than 10 mls TECHNIQUE One percent lidocaine was used to anesthetize the right groin. The right femoral artery was accessed via the Seldinger technique. A 6 [place] sheath was placed in the right femoral artery and therapeutic heparin was administered giving a therapeutic ACT. The JR4 catheter was used to intubate the right coronary artery followed by a Choice PT extra-support wire. Primary stenting could not be performed therefore 3 mm x 27 mm noncompliant balloon was deployed at 20 debra up and down the right coronary artery predilating the stenosis. Following this a 3.5 x 38 mm resolute [place] stent was placed in the distal segment and deployed at 20 debra. An additional 3.5 x 30 mm resolute [place] stent was placed proximal to this back into the ostial segment into the right coronary cusp and then deployed at 20 debra. 3.5 mm balloon could be advanced only to the midportion and deployed at 20 and 24 debra. Likewise a 3.75 noncompliant balloon could only be deployed to the midportion. This was deployed at 24 debra up and down the right coronary. A 4 mm x 12 mm intravascular lithotripsy shockwave balloon was then deployed at 4 5 and 6 debra from the distal to the proximal segment which then further postdilated the heavily calcified vessel. Following this a 3.75 x 15 mm noncompliant balloon was deployed at 20 and then 24 debra up and down the right coronary artery from the ostial segment all the way to the distal aspect of the first stent. DESTINEE-3 flow was present before and after the procedure. At the end of the procedure the apparatus was removed the groin is reprepped closure change sheath was removed good hemostasis was achieved using Perclose device patient was transferred to the postop putting in stable addition IMPRESSION Severe heavily calcified disease throughout the dominant right coronary with successful intravascular lithotripsy throughout the vessel preceded by drug-eluting stenting to the ostial proximal mid and distal segment reducing the critical disease to 0% PLAN 1. Continue dual antiplatelet therapy 2. Risk factor modification 3. Cardiac rehabilitation 4. Avoidance of tobacco products 5. LDL less than 55 to be achieved with high intensity statin Electronically signed by : Fredy Collins MD 05/09/2022 15:20:28
--- NOTE | 2022-05-09 10:02 | EXP.CARD.PN ---
Subjective Subjective Date: 05/09/22 Time: 08:00 Principal diagnosis: angina, abnormal echo Interval history: [facility] 05/06/2022 IMPRESSION Severe to critical extensive calcification in the circumflex artery extending into a large obtuse marginal artery with successful reconstruction of the ostial proximal mid distal circumflex artery extending into the first obtuse marginal artery severe to critical calcified disease reduced to less than 10% with 5 contiguous drug-eluting stents all postdilated with a 4 mm noncompliant balloon Persistent extensive severe calcification throughout the dominant right coronary artery PLAN 1. Keep patient in hospital over the weekend for IV fluids.? Over 4000 mGy of radiation was applied therefore the right coronary was not attempted 2. Bring patient back to the [facility] Tr[facility] Machine Operator Monday for reconstruction of the right coronary artery with anticipated shockwave balloon 3. Take another look at the circumflex artery and make sure the distal obtuse marginal artery is widely patent.? Access will be from the groin this time and if additional stenting is required this will allow greater catheter backup from the groin 4. Risk factor modification 5. Dual antiplatelet therapy 6. Cardiac rehabilitation 7. Avoidance of tobacco products Doing well, denies issues over the weekend, scheduled to return to hemodialysis lab technician today for RCA. Labs reviewed. Exam Data for Last 24 hours Vital signs and Labs for Last 24 Hours: Temp Pulse Resp BP Pulse Ox 98.0 F 78 18 151/98 H 97 05/09/22 07:38 05/09/22 07:38 05/09/22 07:38 05/09/22 07:38 05/09/22 07:38 Laboratory Results - last 24 hr 05/08/22 11:52: POC Glucose 138 H 05/08/22 16:30: POC Glucose 159 H 05/08/22 20:33: POC Glucose 142 H 05/09/22 05:18: POC Glucose 119 H I & O for Last 24 hours: Intake & Output 05/06/22 05/07/22 05/08/22 05/09/22 23:59 23:59 23:59 23:59 Intake Total 1080 / 1080 720 / 720 1200 / 1200 0 / 0 Output Total 400 / 400 0 / 0 0 / 0 0 / 0 Balance 680 / 680 720 / 720 1200 / 1200 0 / 0 Weight 213 lb 13.574 oz 210 lb 8 oz 206 lb 6.4 oz 206 lb 14.4 oz Constitutional Constitutional: no acute distress *Routine Respiratory Exam Respiratory: Present CTA bilaterally and symmetric chest movement *Routine Cardiovascular Exam Cardiovascular: Present RRR, Normal S1 and Normal S2 *Routine Abdominal Exam Abdominal: Present soft and normoactive bowel sounds; Absent tenderness *Routine Extremities Exam Extremities: Present full ROM and normal capillary refill; Absent edema *Routine Skin Exam Skin: Present intact, dry and warm Detailed Neck Exam: Thyroids Thyroid: Absent bruit Progress Note: A&P Assessment and plan (1) Chest pain: Status: Acute (2) CAD (coronary artery disease): Status: Acute (3) Diabetes mellitus, type 2: Status: Acute Assessment and Plan Assessment and Plan for All Diagnoses:: Copied from 05/06/2022 Plan: 1.? The patient presented to the emergency department complaints of chest pain.? He did rule out for an OH with negative troponins but he had an abnormal echocardiogram with regional wall motion abnormalities.? It showed moderate hypokinesis in the mid to distal septal and apical rojo.? This was a change from August 2021.? The patient underwent left cardiac catheterization yesterday and had 5 stents placed to the circumflex artery as well as 20 balloons.? The patient will be on Brilinta and aspirin for dual antiplatelet therapy.? 2.? The patient will be taken back to the cardiac catheterization laboratory on Monday to undergo intervention to his right coronary artery which is also heavily calcified and diseased. 3.? The patient has been educated the risk and benefits of proceeding with repeat left cardiac catheterization with intervention to the right coronary artery.? The patient verbalized understanding and is agreeable in proceeding with the procedure. 4.? The patient will be n.p.o. on Monday night after midnight in preparati
[2022-05-09 11:20] LABS: POC Glucose,Bedside 120 (70-110)
--- NOTE | 2022-05-09 13:40 | EXP.PN ---
Subjective *Date: 05/09/22 *Time: 13:40 Interval history: Date of service May 09, 2022 The patient reports no acute events overnight. He is accompanied by his . He is anticipating repeat heart cath today to evaluate his right circulation. Exam Data for Last 24 hours Vital signs and Labs for Last 24 Hours: Temp Pulse Resp BP Pulse Ox 97.9 F 78 18 132/72 95 05/09/22 11:09 05/09/22 11:09 05/09/22 11:09 05/09/22 11:09 05/09/22 11:09 Laboratory Results - last 24 hr 05/08/22 16:30: POC Glucose 159 H 05/08/22 20:33: POC Glucose 142 H 05/09/22 05:18: POC Glucose 119 H 05/09/22 11:13: POC Glucose 120 H I & O for Last 24 hours: Intake & Output 05/06/22 05/07/22 05/08/22 05/09/22 23:59 23:59 23:59 23:59 Intake Total 1080 / 1080 720 / 720 1200 / 1200 0 / 0 Output Total 400 / 400 0 / 0 0 / 0 0 / 0 Balance 680 / 680 720 / 720 1200 / 1200 0 / 0 Weight 97 kg 95.481 kg 93.621 kg 93.848 kg Constitutional Constitutional: no acute distress, obese and cooperative *Routine HEENT Exam Head: Present normocephalic Eye: Present EOMI and PERRL ENT: Present mucous membranes moist Comments: [place] *Routine Neck Exam Neck: Present supple; Absent JVD or lymphadenopathy *Routine Respiratory Exam Respiratory: Present rhonchi, normal respiratory effort and symmetric chest movement *Routine Cardiovascular Exam Cardiovascular: Present RRR; Absent murmur *Routine Abdominal Exam Abdominal: Present soft and normoactive bowel sounds; Absent tenderness *Routine Extremities Exam Extremities: Present full ROM, pulses intact and normal capillary refill; Absent cyanosis, clubbing or edema *Routine Skin Exam Skin: Present warm; Absent rash *Routine Neurological Exam Neurological: Present alert, oriented X3, moving all extremities, vision grossly intact, hearing grossly intact and normal speech; Absent sensory deficit or motor deficit Routine Psychiatric Exam Psychiatric: Present normal affect, normal thought process, cooperative, good insight and good judgment Assessment and Plan *Assessment and plan (1) Chest pain: Status: Acute Category: Medical Code(s): R07.9 - Chest pain, unspecified (2) CAD (coronary artery disease): Status: Acute Qualifiers: Coronary Disease-Associated Artery/Lesion type: [place] artery [place] vs. transplanted heart: [place] heart Associated angina: with other forms of angina Qualified Code(s): I25.118 - Atherosclerotic heart disease of [place] coronary artery with other forms of angina pectoris Category: Medical Code(s): I25.10 - Atherosclerotic heart disease of [place] coronary artery without angina pectoris (3) Diabetes mellitus, type 2: Status: Acute Category: Medical Code(s): E11.9 - Type 2 diabetes mellitus without complications Plan This is a 76-year-old male that presents to the emergency department with concerns of chest pain since this morning. His past medical history significant for coronary disease status post left heart cath with 3 stents several years ago. Initial ED evaluation is non-revealing. Problems addressed are as follows: Unstable angina Telemetry monitoring Pulse oximetry monitoring Oxygen therapy to maintain appropriate oxygen saturations Antiplatelet therapy Statin therapy Beta-matias therapy ARB therapy Nitroglycerin therapy Parenterally administered controlled substance for comfort care ECG reviewed Cardiology consult noted Left heart cath 05/05/2022 with 5 stents and 20 angioplasties to the left side circulation RCA disease with staged left heart cath planned for today, Monday, May 09, 2022 N.p.o. Coronary artery disease Remote history of left heart cath with stents Left heart cath 05/05/2022 with disease and intervention noted Proceeding with repeat cath on May 09 Cardiology consult Telemetry monitoring Antiplatelet therapy Statin therapy Beta-matias therapy ARB therapy Long-actin
[2022-05-09 16:16] LABS: CATHL Activated Clotting Time 356 SEC (74-125)
[2022-05-09 16:46] LABS: POC Glucose,Bedside 106 (70-110)
--- NOTE | 2022-05-09 18:53 | PC.NURSE ---
VS stable and pt on room air. Right groin site intact, some bleeding noted, pressure held for 20 minutes. Bandage changed and no other bleeding noted. Patient complained of muscle spasms but no pain, Dr. Horn notified, instructed to give norco to help muscle spasms. No chest pain noted per pt.
[2022-05-09 20:11] LABS: POC Glucose,Bedside 157 (70-110)
[2022-05-10] VITALS: BP 172/89; PULSE 100; PULSE 124; RESP 18; TEMP 36.8; O2SAT 96
[2022-05-10 04:00] VITALS: BP 116/66; PULSE 80; PULSE 82; RESP 18; TEMP 36.7; O2SAT 95; BMI 67.2
--- NOTE | 2022-05-10 05:08 | PC.NURSE ---
Pt had his second cath procedure yesterday. Right grown c/d/i and should be discharged today.
[2022-05-10 05:44] LABS: POC Glucose,Bedside 149 (70-110)
[2022-05-10 07:02] LABS: Basophils # 0.1 K/mm3 (0-0.2); Basophils % 0.7 % (0.1-2.0); Eosinophils # 0.3 K/mm3 (0.0-0.4); Eosinophils % 2.6 % (0.1-12.0); Hematocrit 36.8 % (42.0-52.0); Hemoglobin 12.1 g/dL (14.1-18.0); Lymphocytes # 2.3 K/mm3 (0.7-4.5); Lymphocytes % 22.1 % (10-50); Mean Corpuscular Hemoglobin 29.7 pg (27.0-31.2); Mean Corpuscular Volume 90.1 fl (80-94); Mean Platelet Volume 9.4 fl (7.4-10.4); Monocytes # 0.5 K/mm3 (0.1-1.0); Neutrophils # 7.2 K/mm3 (1.8-7.8); Neutrophils % 69.7 % (37.0-80.0); Platelet Count 236 K/mm3 (142-424); Red Blood Count 4.09 M/mm3 (4.60-6.20); Red Cell Distribution Width 14.7 % (11.5-17.5); White Blood Count 10.3 K/mm3 (4.8-10.8)
[2022-05-10 07:21] LABS: Chloride 108 mmol/L (98-107); Sodium 140 mmol/L (136-145)
[2022-05-10 07:22] LABS: Potassium 3.5 mmoL/L (3.5-5.1)
[2022-05-10 07:25] LABS: Anion Gap 14.5 mEq/L (5-15); Blood Urea Nitrogen 11 mg/dl (9-20); Calcium 8.3 mg/dl (8.4-10.2); Carbon Dioxide 21 mmol/L (22.0-30.0); Creatinine Clearance Estimated 62 mL/min (50-200); Estimated Glomerular Filt Rate 110 ml/min (>60); GFR (African American) 133 ML/MIN (>60); Glucose 120 mg/dl (74-100)
[2022-05-10 07:32] VITALS: BP 151/81; PULSE 83; RESP 20; TEMP 36.6; O2SAT 99
[2022-05-10 08:00] VITALS: PULSE 100
--- NOTE | 2022-05-10 08:17 | EXP.DC.SUM ---
General Admission date:: 05/04/22 Discharge date: 05/10/22 HPI HPI HPI: This is a 76-year-old male that presents to [facility] emergency department with concerns of chest pain that started early this morning. His past medical history significant for diabetes, coronary disease, degenerative disc disease lumbar spine. He reports approximately 5:00 in the morning he started feeling left anterior upper chest pain characterized as pressure and similar to previous chest pain that led to left heart cath several years ago. He reports associated shortness of air but no nausea vomiting or diaphoresis. He reports pain radiated to his jaws. He identified no confusion. He presented to the ED for evaluation. In the ED his electrolytes identify hypokalemia and his initial troponin is negative. His ECG identified sinus rhythm rate of [address]-T changes and QTc of 419ms. His HEART score=5 and his DESTINEE score=5. Cardiology was consulted out of the ED. Hospital Course Hospital Course Hospital Course: This is a 76-year-old male that presents to the emergency department with concerns of chest pain since the morning of admission. He was admitted on 05/04 and cardiology was consulted. Medical history significant for coronary artery disease, 3 stents placed several years ago. Taken to the [facility] twice for staged treatment given severity of coronary artery disease and atherosclerosis. Problems addressed during hospitalization as follows: Unstable angina Coronary artery disease Admitted for serial troponins and cardiology eval. Decision made to take patient to the [facility]. Left heart cath performed on 05/05 with significant disease noted and multiple stents placed along with lithotripsy performed due to significant coronary artery calcification. Patient monitored over the weekend For repeat cath on May 09. Repeat procedure addressed right sided coronary flow with subsequent lithotripsy and stenting. Patient initiated on antiplatelet therapy, statin therapy, beta-matias and ARB therapy. We will plan to continue long-acting nitroglycerin. Close follow-up with cardiology. Patient stable on room air with no chest pain at time of discharge. -See [facility] report for full details. - Cardiac meds: Aspirin 81 mg p.o. daily Brilinta 90 mg p.o. twice daily Carvedilol 25 mg p.o. twice daily Irbesartan 150 mg p.o. daily Atorvastatin 80 mg p.o. daily Jardiance 10 mg p.o. daily Imdur 30 mg p.o. daily Echo obtained during hospitalization showing ejection fraction of 50% and grade 1 diastolic dysfunction. Diabetes Hemoglobin A1c 7.4% on admission. Monitor during admission with fingersticks ACHS and sliding scale insulin. Continued SGLT2 therapy. Diabetic diet during admission. Spent 40 minutes in discharge counseling and direct care with patient. Exam Data for Last 24 hours Vital signs and Labs for Last 24 Hours: Temp Pulse Resp BP Pulse Ox 97.9 F 83 20 151/81 H 99 05/10/22 07:32 05/10/22 07:32 05/10/22 07:32 05/10/22 07:32 05/10/22 07:32 Laboratory Results - last 24 hr 05/09/22 11:13: POC Glucose 120 H 05/09/22 15:43: Activated Clotting Time 356 H* 05/09/22 16:31: POC Glucose 106 05/09/22 20:03: POC Glucose 157 H 05/10/22 05:38: POC Glucose 149 H 05/10/22 06:30: WBC 10.3, RBC 4.09 L, Hgb 12.1 L, Hct 36.8 L, MCV 90.1, MCH 29.7, MCHC 33.0, RDW 14.7, Plt Count 236, MPV 9.4, Neut % (Auto) 69.7, Lymph % (Auto) 22.1, Rhea % (Auto) 5.0, Eos % (Auto) 2.6, Baso % (Auto) 0.7, Neut # (Auto) 7.2, Lymph # (Auto) 2.3, Rhea # (Auto) 0.5, Eos # (Auto) 0.3, Baso # (Auto) 0.1 05/10/22 06:30: Sodium 140, Potassium 3.5, Chloride 108 H, Carbon Dioxide 21 L, Anion Gap 14.5, BUN 11 D, Creatinine 0.70, Estimated Creat Clear 62, Estimated GFR 110, Est GFR ( Amer) 133, Glucose 120 H, Calcium 8.3 L I & O for Last 24 hours: Intake & Output 05/07/22 05/08/22 05/09/22 05/10/22 23:59 23:59 23:59 23:59 Intake Total 720 /
--- NOTE | 2022-05-10 10:27 | EXP.CARD.PN ---
Subjective Subjective Date: 05/10/22 Time: 08:00 Principal diagnosis: angina, abnormal echo Interval history: angina, abnormal echo Exam Data for Last 24 hours Vital signs and Labs for Last 24 Hours: Temp Pulse Resp BP Pulse Ox 97.9 F 100 H 20 151/81 H 99 05/10/22 07:32 05/10/22 08:00 05/10/22 07:32 05/10/22 07:32 05/10/22 07:32 Laboratory Results - last 24 hr 05/09/22 11:13: POC Glucose 120 H 05/09/22 15:43: Activated Clotting Time 356 H* 05/09/22 16:31: POC Glucose 106 05/09/22 20:03: POC Glucose 157 H 05/10/22 05:38: POC Glucose 149 H 05/10/22 06:30: WBC 10.3, RBC 4.09 L, Hgb 12.1 L, Hct 36.8 L, MCV 90.1, MCH 29.7, MCHC 33.0, RDW 14.7, Plt Count 236, MPV 9.4, Neut % (Auto) 69.7, Lymph % (Auto) 22.1, [place] % (Auto) 5.0, Eos % (Auto) 2.6, Baso % (Auto) 0.7, Neut # (Auto) 7.2, Lymph # (Auto) 2.3, [place] # (Auto) 0.5, Eos # (Auto) 0.3, Baso # (Auto) 0.1 05/10/22 06:30: Sodium 140, Potassium 3.5, Chloride 108 H, Carbon Dioxide 21 L, Anion Gap 14.5, BUN 11 D, Creatinine 0.70, Estimated Creat Clear 62, Estimated GFR 110, Est GFR ( Amer) 133, Glucose 120 H, Calcium 8.3 L I & O for Last 24 hours: Intake & Output 05/07/22 05/08/22 05/09/22 05/10/22 23:59 23:59 23:59 23:59 Intake Total 720 / 720 1200 / 1200 240 / 240 240 / 240 Output Total 0 / 0 0 / 0 675 / 1125 1000 / 1000 Balance 720 / 720 1200 / 1200 -435 / -885 -760 / -760 Weight 210 lb 8 oz 206 lb 6.4 oz 206 lb 14.4 oz 454 lb 2.436 oz Constitutional Constitutional: no acute distress *Routine Respiratory Exam Respiratory: Present CTA bilaterally and symmetric chest movement *Routine Cardiovascular Exam Cardiovascular: Present RRR, Normal S1 and Normal S2 *Routine Abdominal Exam Abdominal: Present soft and normoactive bowel sounds; Absent tenderness *Routine Extremities Exam Extremities: Present full ROM and normal capillary refill; Absent edema Comments: right groin site: no swelling, bleeding noted. mild tenderness and bruising present. Positive strong pulses noted to RLE *Routine Skin Exam Skin: Present intact, dry and warm Detailed Neck Exam: Thyroids Thyroid: Absent bruit Progress Note: A&P Assessment and plan (1) Chest pain: Status: Acute (2) CAD (coronary artery disease): Status: Acute (3) Diabetes mellitus, type 2: Status: Acute Assessment and Plan Assessment and Plan for All Diagnoses:: 1.? The patient presented to the emergency department complaints of chest pain.? He did rule out for an KS with negative troponins but he had an abnormal echocardiogram with regional wall motion abnormalities.? It showed moderate hypokinesis in the mid to distal septal and apical rojo.? This was a change from August 2021.? The patient underwent left cardiac catheterization yesterday and had 5 stents placed to the circumflex artery as well as 20 balloons.? The patient will be on Brilinta and aspirin for dual antiplatelet therapy.? 2.? The patient will be taken back to the cardiac catheterization laboratory on Monday to undergo intervention to his right coronary artery which is also heavily calcified and diseased. 3.? The patient has been educated the risk and benefits of proceeding with repeat left cardiac catheterization with intervention to the right coronary artery.? The patient verbalized understanding and is agreeable in proceeding with the procedure. 4.? The patient will be n.p.o. on Monday night after midnight in preparation for the left cardiac catheterization on Monday. 5.? The patient did have a high dose of radiation during the procedure yesterday.? He may get a slight sunburn to his skin from the amount of radiation he had.? No signs of this today. 6.? The patient's renal function remained stable at this time.? He did not get significant doses of contrast so expect his renal function to remain normal. 7.? Coronary artery disease is present. 8.? His blood pressure is acceptable for his age. 9.? His LDL goal is less than 55.? His LDL is 53.? On a
[2022-05-10 11:05] VITALS: BP 114/69; PULSE 59; RESP 17; TEMP 36.6; O2SAT 98
[2022-05-10 11:14] LABS: POC Glucose,Bedside 189 (70-110)
--- NOTE | 2022-05-10 12:52 | P.CONPHA_ITS ---
[facility] [employer] Discharge Med Project Coordinator Rn: Aneesh Green has received discharge medication counseling on the following medications: ASPIRIN 81 MG DAILY ATORVASTATIN 80 MG HS CARVEDILOL 25 MG BID IRBESTARTAN 150 MG DAILY BRILINTA 90 MG BID
== END 2022-05-10 12:25 | disposition home or self-care (01) | DRG 246 ==
LOC: ER 15:09 → 2ND 15:49
PROVIDERS: Internal Medicine; Nurse Practitioner Family; Admitting Provider Family Medicine; Emergency Provider Emergency Medicine; PCP Nurse Practitioner Family; Visit Provider Family Medicine
PROC: 027135Z Dilation of Coronary Artery, Two Arteries with Two Drug-eluting Intraluminal Devices, Percutaneous Approach (ICD-10-PCS; principal; 2022-05-05 11:00)
PROC: 02F03ZZ Fragmentation in Coronary Artery, One Artery, Percutaneous Approach (ICD-10-PCS; principal; 2022-05-09 12:00)
DX: I25.110 Atherosclerotic heart disease of native coronary artery with unstable angina pectoris (principal); Z95.5 Presence of coronary angioplasty implant and graft; N40.0 Benign prostatic hyperplasia without lower urinary tract symptoms; E11.9 Type 2 diabetes mellitus without complications; K21.9 Gastro-esophageal reflux disease without esophagitis; E78.5 Hyperlipidemia, unspecified; I10 Essential (primary) hypertension; Z96.643 Presence of artificial hip joint, bilateral; Z79.84 Long term (current) use of oral hypoglycemic drugs; I77.1 Stricture of artery
CPT/HCPCS: 0715T; 36415; 71046; 80048; 80061; 80076; 82962; 83036; 83735; 84484; 85025; 85347; 92928; 92929; 93005; 93306; 93454; 93458; 99152; 99153; 99285; C1725; C1760; C1761; C1769; C1876; C1894; C9600; C9601; C9803; G0378; J1644; Q9967; U0003; U0005

== ENCOUNTER 2022-05-17 09:14 | Outpatient (RCR) | payer MEDICARE, OTHER, SELFPAY | END 2022-08-12 10:00 | disposition home or self-care (01) | LOC: PT 09:14 | PROVIDERS: Visit Provider Internal Medicine | DX: I25.10 Atherosclerotic heart disease of native coronary artery without angina pectoris (principal); Z95.5 Presence of coronary angioplasty implant and graft | CPT/HCPCS: 93798 ==

== ENCOUNTER 2022-12-29 13:00 | Outpatient (RCR) | payer MEDICARE, OTHER, SELFPAY | END 2023-01-02 10:15 | disposition home or self-care (01) | LOC: PT 13:00 | PROVIDERS: PCP Nurse Practitioner Family; Visit Provider Nurse Practitioner Family | DX: M54.2 Cervicalgia (principal) | CPT/HCPCS: 97010; 97012; 97014; 97035; 97110; 97140; 97163; 97164; G0283 ==

== ENCOUNTER 2023-04-03 10:25 | Outpatient (CLI) | payer MEDICARE, OTHER, SELFPAY ==
[2023-04-03 11:38] LABS: Basophils # 0.1 K/mm3 (0-0.2); Basophils % 0.5 % (0.1-2.0); Eosinophils # 0.3 K/mm3 (0.0-0.4); Hematocrit 44.4 % (42.0-52.0); Hemoglobin 14.8 g/dL (14.1-18.0); Lymphocytes # 2.6 K/mm3 (0.7-4.5); Mean Corpuscular HGB Conc 33.4 g/dL (31.8-35.4); Mean Corpuscular Volume 86.8 fl (80-94); Monocytes # 0.5 K/mm3 (0.1-1.0); Neutrophils # 5.3 K/mm3 (1.8-7.8); Neutrophils % 60.5 % (37.0-80.0); Platelet Count 168 K/mm3 (142-424); Red Blood Count 5.11 M/mm3 (4.60-6.20); Red Cell Distribution Width 14.8 % (11.5-17.5); White Blood Count 8.7 K/mm3 (4.8-10.8)
[2023-04-03 12:02] LABS: Alanine Aminotransferase 24 U/L (12-78); Albumin Level 4.2 g/dl (3.5-5.0); Alkaline Phosphatase 71 U/L (38-126); Anion Gap 13.9 mEq/L (5-15); Aspartate Amino Transferase 27 U/L (17-59); Bilirubin,Direct 0.3 mg/dl (0.0-0.4); Bilirubin,Indirect 0.5 mg/dL (0.0-0.9); Bilirubin,Total 0.8 mg/dl (0.2-1.3); Bilirubin,Unconjugated 0.5 mg/dL (0.0-1.1); Blood Urea Nitrogen 7 mg/dl (9-20); Calcium 9.2 mg/dl (8.4-10.2); Carbon Dioxide 25 mmol/L (22.0-30.0); Chloride 105 mmol/L (98-107); Chol/HDL Ratio 2.8 (1-3.5); Cholesterol 115 mg/dl (140-200); Estimated Glomerular Filt Rate 131 ml/min (>60); GFR (African American) 159 ML/MIN (>60); Glucose 151 mg/dl (74-100); HDL Cholesterol 41 mg/dl (40-60); Potassium 3.9 mmoL/L (3.5-5.1); Sodium 140 mmol/L (136-145); Triglycerides 80 mg/dl (30-150); VLDL Cholesterol 16 mg/dL (0-40)
[2023-04-03 12:13] LABS: Direct LDL Cholesterol 60.78 mg/dL (100-129)
== END 2023-04-03 23:59 ==
PROVIDERS: PCP Nurse Practitioner Family; Visit Provider Nurse Practitioner
DX: I25.10 Atherosclerotic heart disease of native coronary artery without angina pectoris (principal); E78.5 Hyperlipidemia, unspecified; Z79.899 Other long term (current) drug therapy
CPT/HCPCS: 36415; 80048; 80061; 80076; 85025

== ENCOUNTER 2023-04-25 14:30 | Outpatient (CLI) | payer MEDICARE, OTHER, SELFPAY ==
--- NOTE | 2023-04-25 14:34 | CA_ITS ---
APPROVED REPORT EXAM: Comprehensive 2D, Doppler, and color-flow Echocardiogram Woolen Tester: Luma Arauz, ANDREW, RVS Ht: 5 ft 8 in Wt: 202lbs BSA: 2.05 BP: 137/89 mmHg Indications: cad, abn ekg, soa, dm, kahn, htn, hld 2D Dimensions IVSd 1.59 cm M: 0.6-1.2 LVEF (Visual) 64.20 % PWd 0.97 cm M: 0.6 - 1.2 EF AP4 2.80 % LVDd 4.72 cm M: 4.2 - 5.9 GL Strain 3.6 % LVDs 3.07 cm M: 2.5 - 4.0 Left Atrium 3.71 cm M: 3.0 - 4.0 M-Mode Dimensions LA Diam 3.91 cm (1.9-4.0) EPSs 0.36 cm TAPSE 1.70 (<1.7) LV Diastology E Decel Time 223 (160-240 msec) E/A Ratio 0.55 MED A' 11.10 cm/s LAT A' 9.80 cm/s Aortic Valve CATHERINE Index 0.89 cm2/m2 AoV Peak David. 132.0 (50-130 cm/s) AO Peak GR. 7.00 mmHg AO Mean GR. 3.50 (<5 mmHg) AO VTI 25.2 (18-25 cm) CATHERINE (VTI) 1.87 (2.5-4.5 cm2) Mitral Valve MV A Velocity 106.0 (40-130 cm/s) E/A Ratio 0.55 Tricuspid Valve TR P. Velocity 218.00 cm/s RAP Estimate 10.00 mmHg RVSP 28.90 mmHg Left Ventricle The left ventricle is normal size. The left ventricular systolic function is normal. The left ventricular ejection fraction is within the normal range. There is increased LV wall thickness. Proximal septal thickening is noted. There is normal LV segmental wall motion. Transmitral Doppler flow pattern suggests impaired LV relaxation. LVEF is 55%. Right Ventricle The right ventricle is normal size. The right ventricular systolic function is normal. Atria The left atrium size is normal. The right atrium size is normal. There is no Doppler evidence of interatrial shunt. Aortic Valve The aortic valve is mildly thickened. There is no aortic valvular stenosis. No aortic regurgitation is present. Mitral Valve The mitral valve is mildly thickened. No evidence of mitral valve stenosis. Mild mitral regurgitation. Tricuspid Valve The tricuspid valve leaflets are thin and pliable. Trace tricuspid regurgitation. RVSP is 15-20 mmHg. Pulmonic Valve The pulmonary valve is normal in structure. Trace pulmonic regurgitation. Great Vessels The aortic root is normal in size. The ascending aorta is normal in size. IVC is normal in size and collapses >50% with inspiration. Pericardium There is no pericardial effusion. Other Information Study Quality: Fair Conclusion Normal biventricular systolic function. Mild MR. Electronically signed by : Shahrzad Benitez MD 04/28/2023 19:17:11
== END 2023-04-25 23:59 ==
LOC: RT 14:31
PROVIDERS: PCP Nurse Practitioner Family; Visit Provider Nurse Practitioner
DX: R06.09 Other forms of dyspnea (principal); R94.31 Abnormal electrocardiogram [ECG] [EKG]
CPT/HCPCS: 93306

== ENCOUNTER 2024-04-15 07:19 | Day surgery (SDC) | payer MEDICARE, OTHER, SELFPAY ==
[2024-04-09 13:43] VITALS: BMI 28.5
[2024-04-15 08:17] VITALS: BP 196/96; PULSE 82; RESP 18; TEMP 36.4; O2SAT 96
--- NOTE | 2024-04-15 08:29 | P.PNANES_ITS ---
[facility] Disclaimer: The information contained in this section may have been updated after the patient was seen, as this information can be updated by other users. Medical History HTN (hypertension) Unstable angina Regional wall motion abnormality of heart Abnormal echocardiogram Angina pectoris GERD (gastroesophageal reflux disease) Diabetes mellitus, type 2 History of left heart catheterization (LHC) Hypertension Benign prostatic hyperplasia CAD (coronary artery disease) HLD (hyperlipidemia) Surgical History H/O nasal septoplasty History of esophagogastroduodenoscopy (EGD) History of hip replacement Right cataract Hx of bilateral hip replacements History of colonoscopy Status post left heart catheterization Family History Mother COPD (chronic obstructive pulmonary disease) Father Coronary artery disease Social History Smoking Status: Never smoker second hand exposure: No alcohol intake: never counseling provided: none substance use type: denies use current occupational status: retired Travel in the last 8 weeks: Inside the [place] household members: spouse housing: house current occupational exposures/hazards: No caffeine: No Have you lived/traveled outside [place] in past 30 days?: No Contact w/someone who lives/traveled outside [place] past 30 days?: No Exposure to someone with infectious disease in past 14 days?: No Do you have a fever (greater than 100.4 F or 38 C)?: No Have you tested positive for COVID-19: No Exposed to someone with COVID-19 in past 14 days?: No Do you have a sore throat?: No Do you have a cough?: No Do you have any weakness?: No Do you have any diarrhea?: No Are you experiencing any unusual bleeding?: No Do you have any muscle aches/pain?: No Do you have any abdominal pain?: No Are you experiencing loss of taste or smell?: No [facility] Anesthesia Checklist Patient Identification Patient Identification: Arm Band and Other: Structural Data Admitted From: Home Planned Operative Procedure/s: EGD Consent for Planned Operative Procedure(s) Verified: Yes Verified Documents: Surgical Consent and History and Physical NPO Status Verified Time NPO: 00:00 Additional verifications Patient : No Anesthesia Reactions: No Hx Blood Transfusions: No Blood Transfusion Reaction: No Cephalosporin Allergy: No Previous Colonoscopy: Yes Airway Assessment Mallampati Score:: Class I TMJ Mobility Assessed: Yes Dentition: Good Dentition Neurological Assessment Level of Consciousness: Awake, Alert, Appropriate and Follows Commands Hx Seizures: No Anesthesia Plan Anesthesia Risk discussed: Yes ASA Class: III Anesthesia Type: MAC Preoperative Comments Pre-Operative Comments: NIDDM. Heart stents X2.
[2024-04-15 08:31] LABS: POC Glucose,Bedside 116 (70-110)
--- NOTE | 2024-04-15 09:04 | EXP.HP ---
History of Present Illness *Admission Date: 04/15/24 *Reason for visit:: Dysphagia *History of present illness: Mr. Green is a 78-year-old gentleman who has had swallowing difficulties and dysphagia. This can sometimes occur with liquids and he states that liquids will sometimes go down very slowly. This can be intermittent. He tries to stay away from meats such as steak which are very hard to swallow. He did have an esophageal dilation with me in May 2020. He does get moderate belching. He also gets some hiccups when he rolls over in the evenings while lying down. He reports no bloating but does have visible abdominal distention. He reports regular bowel function and does have some infrequent obstipation. He is on Ozempic and has lost 14 to 16 pounds. He reports early satiety with this medication but no nausea. He reports no heartburn or reflux. He has been on pantoprazole 40 mg. When he reduce this to 20 mg, he developed symptoms and then resumed 40 mg daily. He feels like sometimes food gets hung or stuck and this resulted in choking and coughing. He reports no globus sensation. He states that he does not eat much and stays away from most meats. He does not eat a lot of greens. He is sustaining with chocolate milk in the morning and ice cream in the evening [facility] Disclaimer: The information contained in this section may have been updated after the patient was seen, as this information can be updated by other users. Medical History HTN (hypertension) Unstable angina Regional wall motion abnormality of heart Abnormal echocardiogram Angina pectoris GERD (gastroesophageal reflux disease) Diabetes mellitus, type 2 History of left heart catheterization (LHC) Hypertension Benign prostatic hyperplasia CAD (coronary artery disease) HLD (hyperlipidemia) Surgical History H/O nasal septoplasty History of esophagogastroduodenoscopy (EGD) History of hip replacement Right cataract Hx of bilateral hip replacements History of colonoscopy Status post left heart catheterization Family History Mother COPD (chronic obstructive pulmonary disease) Father Coronary artery disease Social History Smoking Status: Never smoker second hand exposure: No alcohol intake: never counseling provided: none substance use type: denies use current occupational status: retired Travel in the last 8 weeks: Inside the [place] household members: spouse housing: house current occupational exposures/hazards: No caffeine: No Have you lived/traveled outside [place] in past 30 days?: No Contact w/someone who lives/traveled outside [place] past 30 days?: No Exposure to someone with infectious disease in past 14 days?: No Do you have a fever (greater than 100.4 F or 38 C)?: No Have you tested positive for COVID-19: No Exposed to someone with COVID-19 in past 14 days?: No Do you have a sore throat?: No Do you have a cough?: No Do you have any weakness?: No Do you have any diarrhea?: No Are you experiencing any unusual bleeding?: No Do you have any muscle aches/pain?: No Do you have any abdominal pain?: No Are you experiencing loss of taste or smell?: No Other Medical History Have you received the Flu Vaccine for this season: No Have you received the Pneumonia Vaccine: Yes Review of Systems Review of Systems Review of systems (narrative): Negative *Cardiovascular Comments: Negative *Gastrointestinal Comments: Negative *Genitourinary Comments: Negative *Musculoskeletal Comments: Negative *Neurologic Comments: Negative Meds Home Medications and Allergies Home Medications ?Medication ?Instructions ?Recorded ?Confirmed ?Type dutasteride 0.5 mg-tamsulosin ER 1 cap PO DAILY bladder problems 03/27/17 04/09/24 History 0.4 mg capsule ext.release 24hr mphas (Beckie) [id number] C-Mn 500 1 cap PO DAILY Supplement 08/14/18 04/09/24 History mg-400 mg capsule (Glucosamine Chondroitin Maximum Strength) ascorbic acid (vitamin C) 500 mg 500 mg PO DAILY Supplement 08/19/20 04/09/24 History capsule cholecalciferol (vitamin D3) 50 50 mcg PO DAILY Supplement 08/19/20 04/09/24 History mcg (2,000 unit) capsule zinc 50 mg tablet 50 mg PO DAILY Supplement 08/19/20 04/09/24 History metformin 1,000 mg tablet 1,000 mg PO DAILY Diabetes 05/04/22 04/09/24 History aspirin 81 mg tablet,delayed 81 mg PO DAILY heart health #90 04/03/23 04/09/24 Rx release (Adult Low Dose Aspirin) tabs empagliflozin 25 mg tablet 25 mg PO DAILY Diabetes #90 tabs 04/03/23 04/09/24 Rx (Jardiance) fluticasone propionate 50 1 spray intranasal DIRECTED 04/03/23 03/19/24 History mcg/actuation nasal spray,suspension isosorbide mononitrate 60 mg 60 mg PO DAILY #90 tabs 04/03/23 04/09/24 Rx tablet,extended release 24 hr sildenafil 100 mg tablet (Viagra) 100 mg PO DAILY 04/03/23 04/09/24 History irbesartan 150 mg tablet See Rx Instructions .Route 08/28/23 04/09/24 Rx .COMPLEX #90 tabs atorvastatin 80 mg tablet See Rx Instructions .Route 11/16/23 04/09/24 Rx .COMPLEX #90 tabs carvedilol phosphate 40 mg See Rx Instructions .Route 02/12/24 04/09/24 Rx capsule,[id number] multiphase .COMPLEX #90 caps pantoprazole 40 mg tablet,delayed 40 mg PO DAILY 03/19/24 04/09/24 History release semaglutide 0.25 mg or 0.5 mg (2 10 mg SQ WEEKLY 03/19/24 04/09/24 History mg/3 mL) subcutaneous pen injector (Ozempic) New Prescriptions to Start Prescriptions: Allergies Allergy/AdvReac Type Severity Reaction Status Date / Time No Known Allergies Allergy Verified 04/15/24 08:15 Exam Data for Last 24 hours Vital signs and Labs for Last 24 Hours: Temp Pulse Resp BP Pulse Ox O2 Del Method 97.6 F 82 18 196/96 H 96 Room Air 04/15/24 08:17 04/15/24 08:17 04/15/24 08:17 04/15/24 08:17 04/15/24 08:17 04/15/24 08:17 Laboratory Results - last 24 hr 04/15/24 08:17: POC Glucose 116 H *Routine HEENT Exam Head: Present normocephalic Eye: Present EOMI and PERRL ENT: Present mucous membranes moist *Routine Neck Exam Neck: Present supple *Routine Respiratory Exam Respiratory: Present CTA bilaterally *Routine Cardiovascular Exam Cardiovascular: Present RRR *Routine Abdominal Exam Abdominal: Present soft and normoactive bowel sounds; Absent tenderness *Routine Rectal Exam Rectal:: deferred *Routine Genitalia Exam Genitalia:: deferred *Routine Extremities Exam Extremities: Absent cyanosis, clubbing or edema *Routine Skin Exam Skin: Present warm; Absent rash *Routine Neurological Exam Neurological: Present alert and oriented X3 Assessment and Plan *Assessment and plan (1) Choking: Status: Acute Category: Medical Code(s): T17.308A - Unspecified foreign body in larynx causing other injury, initial encounter (2) Dysphagia: Status: Acute Category: Medical Code(s): R13.10 - Dysphagia, unspecified (3) Swallowing difficulty: Status: Acute Category: Medical Code(s): R13.10 - Dysphagia, unspecified (4) History of esophageal stricture: Status: Acute Category: Medical Code(s): Z87.19 - Personal history of other diseases of the digestive system Plan A/P: 1. Dysphagia/choking is the preprocedural diagnosis. The patient will be anesthetized/sedated using MAC sedation. The patient has been seen and examined. Cardiac and lung assessment prior to the examination is stable. Proceed with planned diagnostic/therapeutic EGD
[2024-04-15 09:11] VITALS: O2SAT 98
--- NOTE | 2024-04-15 09:13 | [facility].PROCNOTE ---
[facility] Procedure Note Date: 04/15/24 Time: 09:22 Procedure Note:: Upper Endoscopy Procedure Report: Esophagogastroduodenoscopy with cold biopsies and TTS balloon dilation Endoscopost: Ned Singh II, MD Referring Physician: SATNAM Gallagher Date of Procedure: April 15, 2024 Equipment: Olympus GIF 190 standard upper endoscope Sedation: MAC sedation Indications: Mr. Green is a 78-year-old gentleman who has had swallowing difficulties and dysphagia. This can sometimes occur with liquids and he states that liquids will sometimes go down very slowly. This can be intermittent. He tries to stay away from meats such as steak which are very hard to swallow. He did have an esophageal dilation with az in May 2020. He does get moderate belching. He also gets some hiccups when he rolls over in the evenings while lying down. He reports no bloating but does have visible abdominal distention. He reports regular bowel function and does have some infrequent obstipation. He is on Ozempic and has lost 14 to 16 pounds. He reports early satiety with this medication but no nausea. He reports no heartburn or reflux. He has been on pantoprazole 40 mg. When he reduces this to 20 mg, he develops symptoms and then resumes back to 40 mg daily. He feels like sometimes food gets hung or stuck and this resulted in choking and coughing. He reports no globus sensation. He states that he does not eat much and stays away from most meats. He does not eat a lot of greens. He is sustaining with chocolate milk in the morning and ice cream in the evening Procedure: Prior to the procedure, a history and physical exam was performed, and patient's medications and allergies were reviewed. The risks, benefits and alternatives of the sedation and procedure were discussed with the patient. All questions were answered and informed consent was obtained. The patient was brought to the procedure room. Patient identification and proposed procedure were verified by the physician and the nurse. The patient was placed in a left lateral decubitus position and the scope was passed under direct vision. Throughout the procedure, the patient's blood pressure, pulse, and oxygen saturations were monitored continuously. The upper GI endoscopy was accomplished without difficulty. The patient tolerated the procedure well. Findings: The scope was passed directly into the upper esophagus and advanced to the third portion of the duodenum. The post bulbar duodenum and duodenal bulb were normal with normal mucosa and conniventes. The scope was withdrawn through a normal duodenal bulb and pylorus into the stomach. There was very mild reactive gastropathy of the prepyloric antrum. There was a moderate to marked amount of retained solid food content in the body and fundus consistent with gastric dysmotility (Ozempic effect). Upon retroflexion there was no hiatal hernia. Biopsies were taken from the antrum. The scope was then withdrawn into the esophagus. There was no evidence of reflux esophagitis. There was an insignificant fibrotic ring in the lower esophagus. There were strong tertiary contractions and evidence of moderate to marked esophageal dysmotility. Biopsies were taken from the distal and proximal esophagus to rule out eosinophilic esophagitis. The entire esophagus was dilated to 60 Latvian/20 mm with a TTS hydrostatic balloon. There was some resistance at the cricopharyngeus/cricopharyngeal spasm. The remainder of the esophageal mucosa was normal. Impression: 1. Cricopharyngeal spasm status post dilation to 20 mm 2. Moderate to marked esophageal dysmotility with nonerosive GERD 3. Retained solid gastric food content (moderate gastric dysmotility?Ozempic effect) 4. Mild reactive gastropathy of antrum Plan: I will follow-up the biopsies. I do feel that his endoscopic findings are related to the Ozempic. Ozempic is a GLP-1 receptor agonist which works by slowing down stomach emptying. I do feel that we should discuss alternatives to management. We will discuss additional treatment options.
[2024-04-15 09:26] VITALS: BP 146/90; PULSE 99; RESP 16; TEMP 36.2; O2SAT 91
[2024-04-15 09:36] VITALS: BP 143/75; PULSE 93; RESP 16; O2SAT 91
[2024-04-15 09:46] VITALS: BP 137/81; PULSE 93; RESP 16; O2SAT 94
[2024-04-15 09:49] VITALS: BP 133/96; PULSE 90; RESP 16; O2SAT 95
== END 2024-04-15 10:00 | disposition home or self-care (01) ==
PROVIDERS: PCP Nurse Practitioner Family; Visit Provider Internal Medicine Gastroenterology
PROC: 0DJ08ZZ Inspection of Upper Intestinal Tract, Via Natural or Artificial Opening Endoscopic (ICD-10-PCS; CPT 43239; principal; 2024-04-15 09:00)
DX: T17.308A Unspecified foreign body in larynx causing other injury, initial encounter (principal); R13.10 Dysphagia, unspecified; Z87.19 Personal history of other diseases of the digestive system; K86.81 Exocrine pancreatic insufficiency; K31.9 Disease of stomach and duodenum, unspecified; K59.9 Functional intestinal disorder, unspecified; K22.4 Dyskinesia of esophagus; K21.9 Gastro-esophageal reflux disease without esophagitis; J39.2 Other diseases of pharynx; E11.9 Type 2 diabetes mellitus without complications; Z79.85 Long-term (current) use of injectable non-insulin antidiabetic drugs
CPT/HCPCS: 43239; 43249; 82962; C1726